=== PATIENT | female | born 1975 | race Caucasian/White ===

== ENCOUNTER 2020-03-08 09:28 | Emergency (ER) | payer MEDICARE, SELFPAY ==
[2020-03-08 09:48] VITALS: BP 174/124; PULSE 85; RESP 20; O2SAT 99; BMI 32.9
--- NOTE | 2020-03-08 10:02 | HMH.EDUTC ---
[facility] [place] Clinical Impression: URI (upper respiratory infection) Qualifiers: URI type: unspecified URI Qualified Code(s): J06.9 - Acute upper respiratory infection, unspecified Disposition: Home, Self-Care Condition on Discharge: Good Instructions: Sinusitis, DI for Sinusitis, Azithromycin, Preventing the Spread of Coronavirus Discharge Instructions Additional Instructions: *Monitor Temp, Over the counter Motrin or Tylenol as directed/as needed Tylenol every 4 hours and Motrin every 6 hours (as long as your family doctor has told you that you can take it) for fever or pain. and straight to ER if unable to lower temp less than 101.0 after medication given *Warm salt water gargles may help to soothe the throat *Throat Lozenges *Warm fluids like tea with honey may help to soothe the throat *Sleep elevated *Humidifier/Vaporizer *Flonase 2 sprays in each nostril daily but be aware that it may take 2-3 days before you notice improvement Follow up IMMEDIATELY for new or worsening symptoms or no Noticeable improvement over the next 48-72 hours. 911 for difficulty breathing or swallowing You was tested for today for COVID19 your test result should be back in the next 24-48 hours, you may call to the [facility] later today or tomorrow to see if your test results are back and the result [phone] [facility] hours are 9am-9pm You was given a handout with instructions for Self Quarantine and Self isolation for while you wait on test results and what to do if they are positive If you are positive the Health Dept will be contacting you also Prescriptions: Amoxicillin/Potassium Clav [Augmentin 875-125 Tablet] 1 tab PO Q12H #14 tab Transmission Status: Pending to [id number] Referrals: Asmita Giang PA [Primary Care Provider] - As needed Forms: Work/School Release Time of Disposition: 10:18 Medical Decision Making - Chance Inquiry Pt receiving controlled substance: No Chance was queried for this patient: No Vital Signs: 03/08/20 09:48 Pulse Rate [Radial] 85 Respiratory Rate 20 Blood Pressure [Right Arm] 174/124 H Blood Pressure Mean [Right Arm] 140 Blood Pressure Source [Right Arm] Automatic Cuff Blood Pressure Position [Right Arm] Sitting 02 Sat by Pulse Oximetry 99 Oxygen Delivery Method Room Air Orders (Tests/Meds): ORDERS Category Date Time Status Covid-19 Nasal PCR ([facility]) Routine Lab 03/08/20 09:35 Ordered Medical Decision Narrative: Discussed blood pressure and recommended transfer to the ED for further work up and evaluation due to blood pressure being so elevated and patient declined and states that she will follow up with PCP or find a new PCP patient states that she has taken augmentin recently without complications and reactions [facility] [place] HPI - General Stated complaint: covid test Time Seen by Provider: 03/08/20 10:02 Mode of Arrival: Ambulatory Source of Information: Patient Limitations: No Limitations Description of Symptoms (Recalled from Triage Doc. by RN): sore throat, congestion, headache, coughing up green stuff HEENT Symptoms (Recalled from RN notes): Yes Resp Symptoms (Recalled from RN notes): No Skin Symptoms (Recalled from RN notes): No MS Symptoms (Recalled from RN notes): No Functional Status (Recalled from RN notes): wnl - History of Present Illness Provider Complaint: Patient states that she has had some sinsus congestion and pressure, having sore throat, drainage and over all feeling achy and at times coughing up some drainage that looks greenish yellow like she blows from her nose States that she was worried that she may have COVID and wanted to get checked - Related Data Previous Rx's Medication Instructions Recorded Amoxicillin/Potassium Clav 1 tab PO Q12H #14 tab 03/08/20 [Augmentin 875-125 Tablet] Allergies Allergy/AdvReac Type Severity Reaction Status Date / Time No Known Allergies Allergy Verified 03/08/20 09:52 - Worker's Comp Is
[2020-03-08 10:32] VITALS: BP 158/104; PULSE 85; RESP 20; TEMP 37.1; O2SAT 99
[2020-03-08 21:29] LABS: UTC Strep Screen (Rapid) Negative (Negative)
== END 2020-03-08 10:33 | disposition home or self-care (01) ==
PROVIDERS: Emergency Provider Nurse Practitioner; PCP Physician Assistant
DX: Z20.828 Contact with and (suspected) exposure to other viral communicable diseases (principal); J06.9 Acute upper respiratory infection, unspecified
CPT/HCPCS: G0463; 87880; 99202; U0003

== ENCOUNTER → 2020-03-11 15:31 | Outpatient (CLI) | payer MEDICARE, SELFPAY ==
--- NOTE | 2020-03-11 15:36 | XR_ITS ---
PROCEDURE: XR CHEST 2V CLINICAL HISTORY: chest pain/dyspnea COMPARISON: No exams were available for comparison FINDINGS: The cardiomediastinal silhouette and pulmonary vascularity are within normal limits. The lungs are clear without infiltrates, suspicious nodules, or pleural effusions. No acute bony abnormalities. IMPRESSION: No acute findings. Dictated by: Montez Hutchison MD 03/11/2020 15:57 Montez Hutchison MD in [place] 03/11/2020 15:57
[2020-03-11 16:31] LABS: Basophils # 0.1 K/mm3 (0-0.2); Basophils % 0.8 % (0.1-2.0); Eosinophils # 0.2 K/mm3 (0.0-0.4); Eosinophils % 1.8 % (0.1-12.0); Hematocrit 43.1 % (37.0-47.0); Hemoglobin 14.2 g/dL (12.2-16.2); Lymphocytes # 2.2 K/mm3 (0.7-4.5); Lymphocytes % 22.9 % (10-50); Mean Corpuscular Volume 84.8 fl (81-99); Mean Platelet Volume 7.6 fl (7.4-10.4); Monocytes # 0.4 K/mm3 (0.1-1.0); Monocytes % 4.3 % (1.7-9.3); Neutrophils # 6.8 K/mm3 (1.8-7.8); Neutrophils % 70.3 % (37.0-80.0); Platelet Count 390 K/mm3 (142-424); Red Blood Count 5.08 M/mm3 (4.20-5.40); Red Cell Distribution Width 16.2 % (11.5-17.5); White Blood Count 9.7 K/mm3 (4.8-10.8)
[2020-03-11 16:59] LABS: Alanine Aminotransferase 22 U/L (12-78); Albumin Level 4.4 g/dl (3.5-5.0); Alkaline Phosphatase 79 U/L (38-126); Anion Gap 12.1 mEq/L (5-15); Aspartate Amino Transferase 25 U/L (14-36); Bilirubin,Direct 0.1 mg/dl (0.0-0.4); Bilirubin,Indirect 0.2 mg/dL (0.0-0.9); Bilirubin,Total 0.3 mg/dl (0.2-1.3); Bilirubin,Unconjugated 0.2 mg/dL (0.0-1.1); Blood Urea Nitrogen 8 mg/dl (7-17); Calcium 9.6 mg/dl (8.4-10.2); Carbon Dioxide 27 mmol/L (22.0-30.0); Chloride 101 mmol/L (98-107); Chol/HDL Ratio 4.7 (1-3.5); Cholesterol 233 mg/dl (140-200); Estimated Glomerular Filt Rate 92 ml/min (>60); GFR (African American) 111 ML/MIN (>60); Glucose 100 mg/dl (74-100); HDL Cholesterol 50 mg/dl (40-60); Potassium 4.1 mmoL/L (3.5-5.1); Sodium 136 mmol/L (136-145); Total Protein,Serum 7.1 g/dl (6.3-8.2); Triglycerides 280 mg/dl (30-150); VLDL Cholesterol 56 mg/dL (0-40)
[2020-03-11 17:09] LABS: NT Pro Brain Natriuretic Pep. 38.2 pg/mL (0-125)
[2020-03-11 17:10] LABS: Direct LDL Cholesterol 146.98 mg/dL (100-129)
[2020-03-11 17:16] LABS: Free T4 (Free Thyroxine) 0.71 ng/dl (0.78-2.19)
[2020-03-11 17:30] LABS: Thyroid Stimulating Hormone 5.18 uIU/mL (0.465-4.68)
== END ==
PROVIDERS: PCP Physician Assistant; Visit Provider Urology
DX: E07.9 Disorder of thyroid, unspecified (principal); I10 Essential (primary) hypertension; R00.2 Palpitations; R06.00 Dyspnea, unspecified; R06.01 Orthopnea; R07.9 Chest pain, unspecified; Z82.49 Family history of ischemic heart disease and other diseases of the circulatory system; Z86.69 Personal history of other diseases of the nervous system and sense organs; Z86.79 Personal history of other diseases of the circulatory system; Z87.448 Personal history of other diseases of urinary system
CPT/HCPCS: 36415; 71046; 80048; 80061; 80076; 83880; 84439; 84443; 85025

== ENCOUNTER → 2020-03-26 07:07 | Outpatient (CLI) | payer MEDICARE, SELFPAY ==
--- NOTE | 2020-03-26 07:08 | CA_ITS ---
APPROVED REPORT Exam: Exercise Treadmill Technologist: Kerline Flores Ht: 5 ft 2 in Wt: 215 lbs BSA: 1.97 m2 HR: 72 bpm BP: 149/92 mmHg Indications: Chest pain, Shortness of Breath Medical History Medications: Levothyroxine,,,,, Aspirin,,,,, Losartan,,,,, Atorvastatin,,,,, HCTZ,,,,, DulOXETINE,,,,, OmeGA 3,,,,, LiNACLOTIDE,,,,, Stress Test Details Test: Mark HR Resting HR: 79 bpm Max Heart Rate (APMHR): 178 bpm Max HR Achieved: 146 bpm Target HR (85% APMHR): 151 bpm % of APMHR: 82 Recovery HR: 95 bpm BP Resting BP: 149.0/92.0 mmHg Max BP: 180.0/94.0 mmHg Recovery BP: 146.0/91.0 mmHg ECG Clinical Exercise duration: 07:00 min Highest Stage Achieved: Exercise capacity: 10.1 METs Stress ECG Conclusion Resting EKG: Normal sinus rhythm, PVCs Patient exercised 7:00 on Mark Protocol. Test stopped due to shortness of air, fatigue. Symptoms: Dyspnea with mild chest tightness Arrhythmias/Ectopy: Occasional isolated PVC ST-T Changes: Allowing for some motion artifact at peak exercise, the ST response is normal. Conclusion: Normal GXT to heart rate achieved (82% of PM), mild chest tightness, myoview images reported separately. Test Summary REST . . . . . . . Sitting REST . . . . . . . Standing REST 05:20 0.0 0.0 79 . 149/ 92 . . Stage 1 01:00 10.0 1.7 106 . . . . Stage 1 02:00 10.0 1.7 111 . . . . Stage 1 03:00 10.0 1.7 116 . 162/ 86 . . Stage 2 01:00 12.0 2.5 127 . . . . Stage 2 02:00 12.0 2.5 126 . . . . Stage 2 . . . . . . . Myoview Injected Stage 2 03:00 12.0 2.5 127 . 166/ 90 . . Stage 3 01:00 14.0 3.4 144 . . . Stop exercise at 07:00 RECOVERY . . . . . . . chest tightness dizzy RECOVERY 01:00 0.0 0.0 120 . . . . RECOVERY 02:00 0.0 0.0 105 . 180/ 94 . . RECOVERY 03:00 0.0 0.0 101 . 167/ 92 . . RECOVERY 04:00 0.0 0.0 90 . 167/ 92 . . RECOVERY 05:00 0.0 0.0 95 . 146/ 91 . . RECOVERY 05:21 0.0 0.0 86 . 146/ 91 . . Electronically signed by : Ashvin Andrea, 03/27/2020 10:23:52
--- NOTE | 2020-03-26 07:08 | CA_ITS ---
APPROVED REPORT EXAM: Comprehensive 2D, Doppler, and color-flow Echocardiogram Satellite Technician: Niharika Chong RVT Ht: 5 ft 2 in Wt: 215lbs BSA: 1.97 BP: 150/88 mmHg Indications: CP,SOA,CHF,HTN,EX SMOKER 2D Dimensions LVOT 2.24 cm (M/F) 1.5-2.5 M-Mode Dimensions RVDd 2.83 cm (0.9-2.6) LA Diam 3.78 cm (1.9-4.0) LVDd 5.19 cm (3.5-5.7) Ao Diam 2.65 cm (2.0-3.7) LVDs 3.43 cm (3.5-5.7) IVSd 0.75 cm (0.6-1.1) PWd 0.72 cm (0.6-1.1) EF (Teich) 62.40% FS 33.90% EDV (Teich) 128.90 mL ESV (Teich) 48.50 mL LV Diastology E Decel Time 157.00 (160-240 msec) E/A Ratio 1.2 MED E' 8.20 (< 7 cm/sec) E'/MED E' Ratio 9.73 (>14) LAT E' 12.10 (<10 cm/sec) E/LAT E' Ratio 6.60 (>14) Mitral Valve MV E Max Delon. 80.00 (40-130 cm/s) MV A Velocity 67.00 (40-130 cm/s) E/A Ratio 1.19 MV Decel. Time 157.00 (160-240 ms) MV PHT 46.00 ms Pulmonary Valve PV Peak Velocity 66.00 (50-150 cm/s) Tricuspid Valve TR P. Velocity 157.00 cm/s Left Ventricle Left atrium is mildly enlarged, left ventricle is normal size, mild concentric left ventricular hypertrophy, visually estimated ejection fraction 55% with no regional wall motion abnormality, diastolic parameters are within normal range. Right Ventricle Right atrium and right ventricle are normal size and contractility. Aortic Valve Aortic valve is minimally thickened and fibrosed. There is no aortic stenosis or aortic insufficiency. Mitral Valve Mitral valve leaflets are minimally thickened, there is no mitral stenosis, there is mild mitral regurgitation. Tricuspid Valve Tricuspid valve is grossly normal, there is mild tricuspid regurgitation. Tricuspid regurgitation jet velocity is inadequate for calculation of the right ventricular systolic pressure. Pulmonic Valve Pulmonic valve is poorly visualized. Great Vessels Aortic root is normal size. Pericardium No significant pericardial effusion noted. Conclusion 1. Mildly enlarged left atrium, normal left ventricular size, mild concentric left ventricular hypertrophy, visually estimated ejection fraction 55% with no regional wall motion abnormality, diastolic parameters are within normal range. 2. Mild mitral and tricuspid regurgitation. 3. No significant pericardial effusion noted. Electronically signed by : Ashvin Andrea, 03/27/2020 11:51:36
--- NOTE | 2020-03-26 07:08 | NM_ITS ---
APPROVED REPORT Exam: Nuclear Stress Test Indication: Chest pain, SOB, Palpitations, Syncope, Fatigue, CAD, CHF, HTN, High cholesterol, Family history Patient Location: Outpatient Stress Tech: Kerline Flores NM Tech:Taylor Stratton, ARRT, RT (R)(N) Ht: 5 ft 2 in Wt: 215 lbs Bra Size: 38C HR: 72 bpm BP: 149/92 mmHg BSA: 1.97 m2 BMI: 39.3 History: Chest pain, SOB, Palpitations, Syncope, Fatigue, CAD, CHF, HTN, High cholesterol, Family history Procedure: Patient exercised on Mark protocol 7:00 minutes and sec, resting heart rate 72 bpm, resting blood pressure 149/92 mmHg, with exercise maximum heart rate achived was 140 bpm which is Less than 85 % of the maximum predicted heart rate and blood pressure was 180/94 mmHg. Test was stopped due to SOA. Patient has good exercise capacity, achieved 10.1 METs of workload on treadmill, the blood pressure response to exercise was Adequate. Electrocardiogram Resting electrocardiogram shows sinus rhythm with exercise there is less than 1.[address] segment depression noted from the baseline EKG. The EKG portion of the exercise Myoview is nondiagnostic as patient did not achieve the target heart rate. Cardiac Stress and Resting SPECT Images: Cardiac Stress and Resting SPECT images were obtained using technetium 99m Myoview 32.0 mCi stress and 10.21 mCi at rest. Gated SPECT for analysis of segmental wall motion and calculation of the ejection fraction also done. Prone images were also obtained. Cardiac stress and resting SPECT images show uniform myocardial activity without segmental perfusion abnormality, computer derived ejection fraction is 53% with no regional wall motion abnormality, right ventricle is normal size and contractility. Conclusion: 1. The EKG portion of the exercise Myoview is nondiagnostic as patient did not achieve the target heart rate, patient has good exercise capacity achieved 10.1 mets of workload on treadmill, the blood pressure response to exercise was adequate, patient does complain chest tightness with exercise. 2. No scintigraphic evidence of reversible ischemia seen at this level of exercise, computer derived ejection fraction 53% with no regional wall motion abnormality, right ventricle is normal size and contractility. Electronically signed by : Ashvin Andrea, 03/27/2020 10:33:02
--- NOTE | 2020-03-26 08:41 | HMH.ITSHM ---
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 []LOSARTAN ATORVASTATIN LEVOTHYROXINE APOLINAR LACKEY
== END ==
PROVIDERS: PCP Family Medicine; Visit Provider Urology
DX: E07.9 Disorder of thyroid, unspecified (principal); I10 Essential (primary) hypertension; R00.2 Palpitations; R06.00 Dyspnea, unspecified; R06.01 Orthopnea; R07.9 Chest pain, unspecified; R40.0 Somnolence; R53.83 Other fatigue; Z86.69 Personal history of other diseases of the nervous system and sense organs; Z86.79 Personal history of other diseases of the circulatory system; Z87.448 Personal history of other diseases of urinary system
CPT/HCPCS: 78452; 93017; 93306; A9502

== ENCOUNTER → 2020-04-14 08:39 | Outpatient (CLI) | payer MEDICARE, SELFPAY ==
[2020-04-14 09:05] LABS: Anion Gap 13.1 mEq/L (5-15); Blood Urea Nitrogen 8 mg/dl (7-17); Calcium 9.5 mg/dl (8.4-10.2); Carbon Dioxide 25 mmol/L (22.0-30.0); Chloride 101 mmol/L (98-107); Estimated Glomerular Filt Rate 92 ml/min (>60); GFR (African American) 111 ML/MIN (>60); Glucose 132 mg/dl (74-100); Potassium 4.1 mmoL/L (3.5-5.1); Sodium 135 mmol/L (136-145)
== END ==
PROVIDERS: Visit Provider Urology
DX: I10 Essential (primary) hypertension (principal); I25.10 Atherosclerotic heart disease of native coronary artery without angina pectoris; R00.2 Palpitations; R06.00 Dyspnea, unspecified; R60.0 Localized edema; Z86.79 Personal history of other diseases of the circulatory system
CPT/HCPCS: 36415; 80048

== ENCOUNTER → 2020-06-16 08:44 | Outpatient (CLI) | payer MEDICARE, SELFPAY ==
[2020-06-16 09:55] LABS: Chloride 104 mmol/L (98-107); Potassium 4.4 mmoL/L (3.5-5.1); Sodium 136 mmol/L (136-145)
[2020-06-16 09:58] LABS: Alanine Aminotransferase 20 U/L (12-78); Albumin Level 4.2 g/dl (3.5-5.0); Albumin/Globulin Ratio 1.8 (1.1-1.8); Alkaline Phosphatase 83 U/L (38-126); Anion Gap 9.4 mEq/L (5-15); Aspartate Amino Transferase 23 U/L (14-36); Bilirubin,Total 0.5 mg/dl (0.2-1.3); Blood Urea Nitrogen 10 mg/dl (7-17); Calcium 9.4 mg/dl (8.4-10.2); Carbon Dioxide 27 mmol/L (22.0-30.0); Chol/HDL Ratio 2.4 (1-3.5); Cholesterol 124 mg/dl (140-200); Estimated Glomerular Filt Rate 91 ml/min (>60); GFR (African American) 111 ML/MIN (>60); Globulin 2.3 g/dL (1.3-3.2); Glucose 111 mg/dl (74-100); HDL Cholesterol 52 mg/dl (40-60); Total Protein,Serum 6.5 g/dl (6.3-8.2); Triglycerides 89 mg/dl (30-150); VLDL Cholesterol 18 mg/dL (0-40)
[2020-06-16 10:10] LABS: Direct LDL Cholesterol 56.74 mg/dL (100-129)
[2020-06-16 10:14] LABS: Free T4 (Free Thyroxine) 1.11 ng/dl (0.78-2.19)
[2020-06-16 10:28] LABS: Thyroid Stimulating Hormone 0.17 uIU/mL (0.465-4.68)
== END ==
PROVIDERS: Visit Provider Family Medicine
DX: I10 Essential (primary) hypertension (principal); E78.5 Hyperlipidemia, unspecified; E03.9 Hypothyroidism, unspecified
CPT/HCPCS: 36415; 80053; 80061; 84439; 84443

== ENCOUNTER → 2020-07-24 08:34 | Outpatient (CLI) | payer MEDICARE, SELFPAY ==
--- NOTE | 2020-07-24 08:36 | CA_ITS ---
APPROVED REPORT Drawer In Dobby Loom: Niharika Chong RVT Study Quality: Good Indications: HTN Risk Factors Hypertension Hyperlipidemia Smoking Renal Artery Doppler Origin (R) 147.8/ cm/sec Proximal (R) 147.8/ cm/sec Mid (R) 165.2/ cm/sec Distal (R) 102.7/ cm/sec Renal Aorta Ratio (R) 1.18 Segmental A. (R) 40.2/17.2 cm/sec RI: 0.57 Segmental A. Sup (R) 40.2/17.2 cm/sec Segmental A. Mid (R) 63.1/24.4 cm/sec Segmental A. Inf (R) 37.3/21.5 cm/sec Origin (L) 101.5/ cm/sec Proximal (L) 140.1/ cm/sec Mid (L) 97.7/ cm/sec Distal (L) 137.5/ cm/sec Renal Aorta Ratio (L) 1.00 Segmental A. (L) 41.1/14.8 cm/sec RI: 0.63 Segmental A. Sup (L) 41.1/14.8 cm/sec Segmental A. Mid (L) 27.7/13.1 cm/sec Segmental A. Inf (L) 27.7/10.2 cm/sec Renal Measurements Kidney Size (R) 11.2x5.5 cm Cortical Thickness (R) 1.6 cm Kidney Size (L) 10.9x5.3 cm Cortical Thickness (L) 1.5 cm Findings Study suggests no evidence of stenosis of the bilateral renal arteries. Conclusion Study suggests no evidence of stenosis of the bilateral renal arteries. Electronically signed by : Montez Hutchison MD 07/24/2020 15:22:49
== END ==
PROVIDERS: PCP Family Medicine; Visit Provider Physician Assistant
DX: I10 Essential (primary) hypertension (principal)
CPT/HCPCS: 93976

== ENCOUNTER 2021-03-13 12:14 | Emergency (ER) | payer MEDICARE, SELFPAY ==
[2021-03-13 12:16] VITALS: BP 140/109; PULSE 83; RESP 18; TEMP 36.8; O2SAT 97; BMI 39.3
[2021-03-13 12:41] LABS: Microscopic, Urine URINE MICROSCOPIC (MICROSCOPIC)
[2021-03-13 12:45] LABS: Appearance,Urine CLEAR (Clear); Bilirubin,Urine Negative (Negative); Blood, Urine 3+ (Negative); Color,Urine YELLOW (Yellow); Glucose,Urine (UA) Negative (Negative); Ketones,Urine Negative (Negative); Leukocyte Esterase,Urine Negative (Negative); Nitrate,Urine Negative (Negative); Protein,Urine Negative (Negative); Urobilinogen,Urine 0.2 EU/dl (0.2)
--- NOTE | 2021-03-13 13:08 | HMH.EDGENADL ---
ED Disposition Clinical Impression: Ovarian cyst Qualifiers: Laterality: left Qualified Code(s): N83.202 - Unspecified ovarian cyst, left side Disposition: Home, Self-Care Condition on Discharge: Good Instructions: DI for Ovarian Cyst Referrals: Gregor Geller MD [Primary Care Provider] - Nawaf Orta MD [Staff Physician] - - Critical Care Critical Care Time: No Attestation: On 03/13/21, the high probability of a clinically significant, sudden or life threatening deterioration of the following system(s) required my full and direct attention, intervention and personal management. The time I documented below is in addition to time spent performing reported procedures but includes the following listed in this critical care notation. Medical Decision Making - Medical Records Medical records reviewed: Yes: I reviewed the patient's medical records. - Chance Inquiry Pt receiving controlled substance: No Vital Signs: 03/13/21 12:16 Temperature 98.3 F Temperature Source Oral Pulse Rate [Right Radial] 83 Respiratory Rate 18 Blood Pressure [Right Arm] 140/109 H Blood Pressure Mean [Right Arm] 119 Blood Pressure Source [Right Arm] Automatic Cuff Blood Pressure Position [Right Arm] Sitting 02 Sat by Pulse Oximetry 97 Oxygen Delivery Method Room Air - Lab Data Lab Results 03/13/21 12:23: Urine HCG, Qual Negative 03/13/21 12:35: Urine Color Yellow, Urine Appearance Clear, Urine pH 7.0, Ur Specific [place] 1.010, Urine Protein Negative, Urine Glucose (UA) Negative, Urine Ketones Negative, Urine Blood 3+, Urine Nitrate Negative, Urine Bilirubin Negative, Urine Urobilinogen 0.2, Ur Leukocyte Esterase Negative, Urine RBC 10-20, Ur Squamous Epith Cells 5-10, Urine Bacteria 1+ 03/13/21 12:52: WBC 6.9, RBC 4.15 L, Hgb 11.7 L, Hct 35.3 L, MCV 85.0, MCH 28.2, MCHC 33.2, RDW 14.0, Plt Count 451 H, MPV 7.7, Neut % (Auto) 70.1, Lymph % (Auto) 22.7, [place] % (Auto) 4.8, Eos % (Auto) 1.3, Baso % (Auto) 1.1, Neut # (Auto) 4.8, Lymph # (Auto) 1.6, [place] # (Auto) 0.3, Eos # (Auto) 0.1, Baso # (Auto) 0.1 03/13/21 12:52: Sodium 136, Potassium 4.0, Chloride 101, Carbon Dioxide 29, Anion Gap 10.0, BUN 10, Creatinine 0.70, Estimated Creat Clear 160, Estimated GFR 91, Est GFR ( Amer) 111, Glucose 84, Calcium 9.4, Total Bilirubin 0.2, AST 28, ALT 17, Alkaline Phosphatase 73, Total Protein 6.8, Albumin 4.3, Globulin 2.5, Albumin/Globulin Ratio 1.7 Result diagrams: 03/13/21 12:52 03/13/21 12:52 Orders (Tests/Meds): ED MEDICATIONS Discontinued Medications Generic Name Dose Route Start Last Admin Trade Name Freq PRN Reason Stop Dose Admin Sodium Chloride 1,000 mls @ 999 mls/hr 03/13/21 12:45 03/13/21 13:16 Sod Chlor 0.9% 1000ml Bag IV 03/13/21 13:45 999 mls/hr .Q1H1M MARCELINA Administration Iopamidol 75 ml 03/13/21 15:16 03/13/21 15:17 Iopamidol-370 (76%);100ml Bottle IV 03/13/21 15:17 75 ml ONCE ONE Administration Ketorolac Tromethamine 30 mg 03/13/21 12:39 03/13/21 13:16 Ketorolac 30mg/Ml Vial IV 03/13/21 12:40 30 mg ONCE ONE Administration Ondansetron HCl 4 mg 03/13/21 12:39 03/13/21 13:16 Ondansetron 4mg/2ml Vial IV 03/13/21 12:40 4 mg ONCE ONE Administration Sodium Chloride 10 ml 03/13/21 15:16 03/13/21 15:17 Sodium Chloride 0.9% 10ml Syr (Rad Only) IV 03/13/21 15:17 10 ml ONCE ONE Administration - CT Data CT Scan: Abdomen, Pelvis Time Received: 16:[address] Reviewed: Yes: I have reviewed the patient's CT results, I have viewed the radiologist's interpretation Findings Narrative: IMPRESSION: 1. No acute findings. 2. No findings of appendicitis. 3. Biliary tree is within normal limits post cholecystectomy. 4. Additional nonemergency and chronic findings as above, including 3.3 cm left adnexal cyst, some sclerotic bone lesions, spinal degenerative changes. - Reevaluation(s) Time: 16:13 Reevaluation #1: On reevaluation, patient is feeling hermelindo
[2021-03-13 13:11] LABS: Bacteria,Urine 1+ /lpf
[2021-03-13 13:30] LABS: Chloride 101 mmol/L (98-107); Sodium 136 mmol/L (136-145)
[2021-03-13 13:33] LABS: Alanine Aminotransferase 17 U/L (12-78); Alkaline Phosphatase 73 U/L (38-126); Aspartate Amino Transferase 28 U/L (14-36); Bilirubin,Total 0.2 mg/dl (0.2-1.3); Blood Urea Nitrogen 10 mg/dl (7-17); Creatinine Clearance Estimated 160 mL/min (50-200); Estimated Glomerular Filt Rate 91 ml/min (>60); GFR (African American) 111 ML/MIN (>60)
[2021-03-13 13:34] LABS: Albumin Level 4.3 g/dl (3.5-5.0); Albumin/Globulin Ratio 1.7 (1.1-1.8); Calcium 9.4 mg/dl (8.4-10.2); Carbon Dioxide 29 mmol/L (22.0-30.0); Globulin 2.5 g/dL (1.3-3.2); Glucose 84 mg/dl (74-100); Total Protein,Serum 6.8 g/dl (6.3-8.2)
[2021-03-13 13:54] LABS: Basophils # 0.1 K/mm3 (0-0.2); Basophils % 1.1 % (0.1-2.0); Eosinophils # 0.1 K/mm3 (0.0-0.4); Eosinophils % 1.3 % (0.1-12.0); Hematocrit 35.3 % (37.0-47.0); Hemoglobin 11.7 g/dL (12.2-16.2); Lymphocytes # 1.6 K/mm3 (0.7-4.5); Lymphocytes % 22.7 % (10-50); Mean Corpuscular HGB Conc 33.2 g/dL (31.8-35.4); Mean Corpuscular Hemoglobin 28.2 pg (27.0-31.2); Mean Platelet Volume 7.7 fl (7.4-10.4); Monocytes # 0.3 K/mm3 (0.1-1.0); Monocytes % 4.8 % (1.7-9.3); Neutrophils # 4.8 K/mm3 (1.8-7.8); Neutrophils % 70.1 % (37.0-80.0); Platelet Count 451 K/mm3 (142-424); Red Blood Count 4.15 M/mm3 (4.20-5.40); White Blood Count 6.9 K/mm3 (4.8-10.8)
--- NOTE | 2021-03-13 14:17 | CT_ITS ---
PROCEDURE INFORMATION: Exam: CT Abdomen And Pelvis With Contrast Exam date and time: 03/13/2021 2:17 PM Age: 45 years old Clinical indication: Abdominal pain; Localized; Lower; Additional info: Pain, bleeding TECHNIQUE: Imaging protocol: Computed tomography of the abdomen and pelvis with contrast. Radiation optimization: All CT scans at this facility use at least one of these dose optimization techniques: automated exposure control; mA and/or kV adjustment per patient size (includes targeted exams where dose is matched to clinical indication); or iterative reconstruction. Contrast material: ISOVUE; Contrast volume: 75 ml; Contrast route: IV; COMPARISON: US CA RENAL ARTERY DUPLEX 07/24/2020 8:58 AM FINDINGS: Lungs: Minimal interstitial scarring or subsegmental atelectasis in the posterior lower lungs. No focal consolidation. Liver: The liver is normal. Gallbladder and bile ducts: Cholecystectomy clips. No biliary dilatation. No calcified stones. Pancreas: The pancreas is normal. Spleen: The spleen is normal. Adrenal glands: The adrenal glands are normal. Kidneys and ureters: The kidneys are normal. The ureters are normal. Stomach and bowel: There is no evidence of intestinal perforation or obstruction. The stomach is normal. Appendix: A normal appendix is identified. Intraperitoneal space: There is no significant free intraperitoneal fluid. There is no free intraperitoneal air. Vasculature: There is no aortic aneurysm.The vasculature demonstrates scattered mild atherosclerotic calcification. No portal venous gas. Lymph nodes: No significantly enlarged lymph nodes by short axis criteria. Urinary bladder: The bladder is normal. Reproductive: 3.3 cm left adnexal cystic lesion, HU density approximate 15, this is within normal limits size for age. No enhancing internal septations or nodules are visible. Series 4, image 85. Bilateral adnexal calcific densities, correlate for tubal ligation. Uterus and right ovary otherwise unremarkable. Bones/joints: Spinal degenerative changes greatest in the lower thoracic spine with multilevel disc narrowing and spondylosis.There is no evidence of acute fracture. 2 cm sclerotic right acetabular bone lesion coronal image 49, and axial series 4, image 96, nonspecific. Tiny sclerotic lesion of the inferior right ischium series 4, image 115 of 6 mm. Sclerotic lesions are statistically most likely benign bone islands, less likely would be blastic metastases. Lumbar facet arthropathy. Soft tissues: There is a tiny fatty umbilical hernia; no herniated bowel loops. There are no soft tissue masses or fluid collections. IMPRESSION: 1. No acute findings. 2. No findings of appendicitis. 3. Biliary tree is within normal limits post cholecystectomy. 4. Additional nonemergency and chronic findings as above, including 3.3 cm left adnexal cyst, some sclerotic bone lesions, spinal degenerative changes.
[2021-03-13 14:56] LABS: Urine Pregnancy, HCG Qual. Negative (Negative)
[2021-03-13 16:46] VITALS: BP 138/97; PULSE 66; RESP 18; TEMP 36.8; O2SAT 100
== END 2021-03-13 16:46 | disposition home or self-care (01) ==
PROVIDERS: Emergency Provider Emergency Medicine; PCP Family Medicine
DX: N83.202 Unspecified ovarian cyst, left side (principal); I10 Essential (primary) hypertension; N28.9 Disorder of kidney and ureter, unspecified
CPT/HCPCS: 74177; 80053; 81001; 81025; 85025; 96365; 96375; 99283; J2405; Q9967

== ENCOUNTER → 2021-03-16 11:03 | Outpatient (CLI) | payer MEDICARE, SELFPAY | PROVIDERS: PCP Family Medicine; Visit Provider Nurse Practitioner Family | DX: R00.2 Palpitations (principal); R42 Dizziness and giddiness; R60.9 Edema, unspecified | CPT/HCPCS: 93270 ==

== ENCOUNTER → 2021-03-26 15:01 | Outpatient (CLI) | payer MEDICARE, SELFPAY ==
--- NOTE | 2021-03-26 15:01 | US_ITS ---
PROCEDURE: US TRANSVAGINAL CLINICAL INDICATION: DUB COMPARISON: No exams were available for comparison FINDINGS: UTERUS: 9cm x 6cmx 4cm with a combined endometrial thickness of 11.3mm LEFT OVARY: [id number] with a volume of 22.9ml. RIGHT OVARY: [id number] with a volume of 5.2ml. Nabothian cysts are present. A small focal area of increased echogenicity is present in the central aspect of the endometrium at 6 by 2 mm possibly due to small polyp. There is a 3 cm simple appearing left ovarian cyst. No cul-de-sac fluid apparent. IMPRESSION: Endometrial thickness upper limits of normal with questionable small endometrial polyp. 3 cm benign-appearing left ovarian cyst Dictated by: Montez Hutchison MD 03/26/2021 17:10 Montez Hutchison MD in [place] 03/26/2021 17:10
== END ==
PROVIDERS: PCP Family Medicine; Visit Provider Obstetrics & Gynecology
DX: N92.0 Excessive and frequent menstruation with regular cycle (principal); N93.8 Other specified abnormal uterine and vaginal bleeding
CPT/HCPCS: 76830

== ENCOUNTER → 2021-04-21 11:11 | Outpatient (CLI) | payer MEDICARE, SELFPAY ==
[2021-04-21 12:09] LABS: Basophils # 0.1 K/mm3 (0-0.2); Basophils % 0.6 % (0.1-2.0); Eosinophils # 0.2 K/mm3 (0.0-0.4); Eosinophils % 1.7 % (0.1-12.0); Hematocrit 36.8 % (37.0-47.0); Hemoglobin 11.6 g/dL (12.2-16.2); Lymphocytes # 1.9 K/mm3 (0.7-4.5); Lymphocytes % 21.2 % (10-50); Mean Corpuscular HGB Conc 31.6 g/dL (31.8-35.4); Mean Corpuscular Volume 85.4 fl (81-99); Mean Platelet Volume 7.2 fl (7.4-10.4); Monocytes # 0.4 K/mm3 (0.1-1.0); Monocytes % 4.3 % (1.7-9.3); Neutrophils # 6.5 K/mm3 (1.8-7.8); Neutrophils % 72.3 % (37.0-80.0); Platelet Count 480 K/mm3 (142-424); Red Blood Count 4.31 M/mm3 (4.20-5.40); Red Cell Distribution Width 14.2 % (11.5-17.5)
[2021-04-21 12:33] LABS: HCG Qualitative, Serum Negative (Negative)
[2021-04-21 12:34] LABS: Alanine Aminotransferase 20 U/L (12-78); Albumin Level 4.3 g/dl (3.5-5.0); Alkaline Phosphatase 59 U/L (38-126); Anion Gap 11.7 mEq/L (5-15); Aspartate Amino Transferase 22 U/L (14-36); Bilirubin,Total 0.4 mg/dl (0.2-1.3); Blood Urea Nitrogen 13 mg/dl (7-17); Calcium 9.5 mg/dl (8.4-10.2); Carbon Dioxide 24 mmol/L (22.0-30.0); Chloride 104 mmol/L (98-107); Estimated Glomerular Filt Rate 109 ml/min (>60); GFR (African American) 132 ML/MIN (>60); Globulin 2.2 g/dL (1.3-3.2); Glucose 91 mg/dl (74-100); Potassium 4.7 mmoL/L (3.5-5.1); Sodium 135 mmol/L (136-145); Total Protein,Serum 6.5 g/dl (6.3-8.2)
[2021-04-21 13:04] LABS: Barbiturates Screen,Urine Negative ng/ml (<200)
[2021-04-21 13:05] LABS: Amphetamine/Metha Screen,Urine Negative ng/ml (<1000); Benzodiazepines Screen,Urine Negative ng/ml (<200)
[2021-04-21 13:06] LABS: Cannabinoid Screen,Urine Negative ng/ml (<50); Cocaine Screen,Urine Negative ng/ml (<300)
[2021-04-21 13:07] LABS: Methadone Screen,Urine Negative ng/ml (<300)
[2021-04-21 13:08] LABS: Opiate Screen,Urine Negative ng/ml (<300); Phencyclidine Screen,Urine Negative ng/ml (<25)
== END ==
PROVIDERS: PCP Family Medicine; Visit Provider Obstetrics & Gynecology
DX: Z01.812 Encounter for preprocedural laboratory examination (principal); Z11.52 Encounter for screening for COVID-19; Z79.899 Other long term (current) drug therapy
CPT/HCPCS: 36415; 80053; 80305; 84703; 85025; C9803; U0003; U0005

== ENCOUNTER 2021-04-23 06:17 | Day surgery (SDC) | payer MEDICARE, SELFPAY ==
[2021-04-20 13:15] VITALS: BMI 40.2
[2021-04-23] VITALS (11 sets, daily range): BP systolic 124–150; BP diastolic 65–95; PULSE 56–78; RESP 12–20; TEMP 36.3–36.4; O2SAT 93–100
--- NOTE | 2021-04-23 08:31 | HMH.ANESCL ---
[facility] Anesthesia Checklist - Patient Identification Patient Identification: Arm Band, Verbal (Name & ) - Structural Data Admitted From: Home Planned Operative Procedure/s: Hysteroscopy Consent for Planned Operative Procedure(s) Verified: Yes Verified Documents: Surgical Consent - NPO Status Verified Time NPO: 00:00 - Chart Verification Results Verified: CBC, BMP - Additional verifications Anesthesia Reactions: No Hx Blood Transfusions: No Blood Transfusion Reaction: No - Airway Assessment C-Spine Mobility Assessed: Yes TMJ Mobility Assessed: Yes Dentition: Good Dentition - Neurological Assessment Level of Consciousness: Awake, Alert, Appropriate - Anesthesia Plan Anesthesia Risk discussed: Yes ASA Class: II Anesthesia Type: General [facility] History I have reviewed the patient's past medical history: Yes Medical History: Reports:: Anxiety, Congestive Heart Failure, Diabetes Mellitus Type 1, Diabetes Mellitus Type 2, Hypertension, Renal Disease, Seizures (>60 days) Denies:: Cancer, Internal Pacemaker, MRSA *Have you ever received a pneumonia vaccine?: No *Have you received a flu vaccine this season?: No Other Medical History: Reports: Thyroid Disease. Denies: Blood Transfusion Reaction Anesthesia experience/problems:: none Other Surgeries: Yes: Angiogram, Cholecystectomy, Colonoscopy, EGD, Tubal Ligation. No: Pacemaker Amputation: No Fractures: No - *Social History Last grade of school completed: GED Smoking Status: Former smoker Alcohol Intake: current Alcohol Intake Frequency:: holidays/special occasions only Substance Use Type: denies use *Occupational Status:: disabled *Travel in the last 8 weeks: None - Psychiatric History Pschychiatric History:: Reports:: Anxiety Family Hx:: Cancer, Stroke, Coronary Artery Disease, Heart Attack
--- NOTE | 2021-04-23 10:04 | HMH.ANESI ---
[facility] Anesthesia Record Part I Intake, IV Amount: 800 Estimated blood loss (mL): 0 Urine output (mL): 0 Blood Pressure: 128/73 SaO2: 94 Pulse Rate: 60 Respiratory Rate: 12 Temperature: 97.5 F Patient is:: Awake, Stable Stable to PACU at:: 10:00
[2021-04-23 10:19] LABS: POC Glucose,Bedside 90 (70-110)
--- NOTE | 2021-04-23 10:26 | P.OP_ITS ---
Date of procedure: 04/23/21 Pre-op Diagnosis:: 1. Heavy menstrual bleeding 2. Dysfunctional uterine bleeding 3. Anemia secondary to chronic blood loss Post-op Diagnosis:: same Procedure performed:: D&C Hysteroscopy with Myosure excision of endometrial polyp Novasure endometrial ablation Surgeon:: Tonia Lott MD WAFER [employer] OPERATOR:: Gerardo Vazquez Anesthesia: GETA Estimated blood loss (mL): 5 Operative findings:: anterior cavitary lesions consistent with endometrial polyps Operative note:: The patient was taken to the operating room and general anesthesia was administered. She was prepped/draped in lithotomy position. The anterior lip of the cervix was grasped with a single tooth tenaculum and the cervix was dilated with Wong dilators of serially increasing size until the external os was able to accomodate the Myosure hysteroscope. The hysteroscope was advanced through the cervix and into the uterine cavity, which was distended with LR. Once the uterus was sufficiently distended, the cavity was evaluated and revealed several lesions on anterior uterine wall consistent with endometrial polyps. The Myosure was inserted into the hysteroscope and these lesions were excised successfully and without complication or significant fluid deficit. After the conclusion of this procedure, the Myosure and hysteroscope were removed from the uterus. The uterine cavity sounded to a length of 5cm. The Novasure was inserted through the cervix and expanded to fit the width of the uterus, with a width of 4.2cm. After a successful cavity assessment, the device was deployed and the endometrial ablation was completed in 81 seconds. The hysteroscope was removed from the uterus and all instruments removed from the vagina. The tenaculum site was hemostatic. All sponge/lap/needle/instrument counts correct x2. Total EBL: 5cc. The patient was taken out of lithotomy position, extubated and taken to the PACU in stable condition. Condition: stable Disposition: PACU Specimens:: endometrial curettings Complications:: none
--- NOTE | 2021-04-24 10:38 | P.PN_ITS ---
[facility] Anesthesia Record Part II Discharge Time: 10:44 Destination: Surgical Day Care (OP Surgery) PACU nurse assessment reviewed?: Yes Patient Condition:: Good Anesthesia Complications:: None Swallowing reflex intact?: Yes Cyanosis?: No Blood Pressure: 124/65 Pulse Rate: 56 Temperature: 97.5 F Mental Status: Alert & Oriented Pain level:: 4 Nausea and/or vomitting:: None Intake, IV Amount: 0
[2021-04-24 10:39] VITALS: BP 124/65; PULSE 56; TEMP 36.4
[2022-01-07 10:56] LABS: POC Glucose,Bedside 89 (70-110)
== END 2021-04-23 11:28 | disposition home or self-care (01) ==
LOC: OR 06:19
PROVIDERS: PCP Family Medicine; Visit Provider Obstetrics & Gynecology
DX: D50.0 Iron deficiency anemia secondary to blood loss (chronic) (principal); N92.0 Excessive and frequent menstruation with regular cycle; N93.8 Other specified abnormal uterine and vaginal bleeding; F41.9 Anxiety disorder, unspecified; I50.9 Heart failure, unspecified; E10.9 Type 1 diabetes mellitus without complications; E11.9 Type 2 diabetes mellitus without complications; I10 Essential (primary) hypertension; N28.9 Disorder of kidney and ureter, unspecified; R56.9 Unspecified convulsions; Z87.891 Personal history of nicotine dependence
CPT/HCPCS: 58563; 82962; 88305; 88342; J2405

== ENCOUNTER → 2021-07-21 06:17 | Outpatient (CLI) | payer SELFPAY ==
--- NOTE | 2021-07-21 06:18 | CT_ITS ---
FINAL REPORT TECHNIQUE: Thin section axial images were obtained through the heart and coronary arteries per CT coronary calcium score protocol. This study was performed with techniques to keep radiation doses as low as reasonably achievable (ALARA). Individualized dose reduction techniques using automated exposure control or adjustment of mA and/or kV according to the patient's size were employed. CLINICAL HISTORY: . chest pain, hypertension FINDINGS: On the axial images, there is calcification within the left anterior descending coronary artery and circumflex. This gives a coronary artery calcium score of 435 based on the Agatston scale. This coronary calcium score places the patient within the 99th percentile based on age and gender. The heart is normal in size. There is no pleural or pericardial effusion. Limited evaluation of the lungs reveal no suspicious nodule. IMPRESSION: Significant coronary artery disease. Cardiac evaluation and aggressive risk factor modification is recommended. Reviewed, Interpreted and Dictated by Marin Tai MD Transcribed by Zari Evans Authenticated by Marin Tai MD on 07/21/2021 08:30:12 AM [facility]
== END ==
PROVIDERS: PCP Family Medicine; Visit Provider Internal Medicine Cardiovascular Disease
DX: R06.00 Dyspnea, unspecified (principal); I20.9 Angina pectoris, unspecified; I10 Essential (primary) hypertension; R60.0 Localized edema; Z86.79 Personal history of other diseases of the circulatory system
CPT/HCPCS: 75571

== ENCOUNTER → 2021-07-21 06:22 | Outpatient (CLI) | payer MEDICARE, SELFPAY ==
--- NOTE | 2021-07-21 06:23 | CA_ITS ---
APPROVED REPORT Exam: Exercise Treadmill Technologist: Gayatri Quiroz, Ht: 5 ft 2 in Wt: 220 lbs BSA: 1.99 m2 HR: 55 bpm BP: 109/73 mmHg Rhythm: sinus florinda, low voltage QRS Medical History Medical History: HTN, Hyperlipidemia, Diabetic ??? Noninsulin Medications: Levothyroxine,,,,, Metformin,,,,, Losartan,,,,, DulOXETINE,,,,, Magnesium,,,,, Esomeprazole,,,,, Nadolol,,,,, AtorvaASTATIN,,,,, OmeGA 3,,,,, LiNACLOTIDE,,,,, MeDroxyprogesterone,,,,, Cardiac Risk Factors: HTN, Hyperlipidemia, Diabetes (non-insulin), FHX of CAD, Smoking Stress Test Details Test: Mark HR Resting HR: 62 bpm Max Heart Rate (APMHR): 176.330159 bpm Max HR Achieved: 143 bpm Target HR (85% APMHR): 149.678969 bpm % of APMHR: 81.25 Recovery HR: 118 bpm BP Resting BP: 110/75 mmHg Max BP: 162/66 mmHg Recovery BP: 147.0/76.0 mmHg ECG Resting ECG: sinus florinda, low voltage QRS Clinical Exercise duration: 07:31 min Highest Stage Achieved: Exercise capacity: 10.1 METs Stress ECG Conclusion Pt exercised total of 7:30 on mark protocol. No CP noted. Occasional PVC and 2 ventricular couplets. Allowing for motion artifact, the ST response to exercise is within normal. Normal GXT to HR achieved. (81% of PM). Blunted HR response on nadolol. Myoview images reported separately. Test Summary REST . . . . . . . Sitting REST . . . . . . . Standing REST 05:01 0.0 0.0 62 . 110/ 75 . . Stage 1 01:00 10.0 1.7 96 . . . . Stage 1 02:00 10.0 1.7 105 . . . . Stage 1 03:00 10.0 1.7 107 . 140/ 70 . . Stage 2 01:00 12.0 2.5 115 . . . . Stage 2 02:00 12.0 2.5 117 . . . . Stage 2 03:00 12.0 2.5 124 . 148/ 72 . . Stage 3 01:00 14.0 3.4 135 . . . . Stage 3 01:31 14.0 3.4 142 . . . Stop exercise at 07:31 RECOVERY 01:00 0.0 0.0 118 . . . . RECOVERY 02:00 0.0 0.0 92 . . . . RECOVERY 03:00 0.0 0.0 74 . 147/ 76 . . RECOVERY 04:00 0.0 0.0 78 . 162/ 66 . . RECOVERY 05:00 0.0 0.0 70 . 162/ 66 . . RECOVERY 05:45 0.0 0.0 67 . 126/ 69 . . Electronically signed by : Ashvin Andrea MD 07/21/2021 18:26:54
--- NOTE | 2021-07-21 06:23 | NM_ITS ---
APPROVED REPORT Exam: Nuclear Stress Test Indication: Chest pain, SOB, Palpitations, Syncope, Fatigue, CAD, HTN, DM, Family history Patient Location: Outpatient Stress Tech: Gayatri Quiroz [place] Tech:Taylor Stratton, ARRT, RT (R)(N) Ht: 5 ft 2 in Wt: 220 lbs Bra Size: 38C HR: 62 bpm BP: 110/75 mmHg BSA: 1.99 m2 BMI: 40.2 History: Chest pain, SOB, Palpitations, Syncope, Fatigue, CAD, HTN, DM, Family history Procedure: Patient exercised on Mark protocol 7:31 minutes and sec, resting heart rate 62 bpm, resting blood pressure 110/75 mmHg, with exercise maximum heart rate achived was 143 bpm which is 81 % of the maximum predicted heart rate and blood pressure was 162/66 mmHg. Test was stopped due to SOB. Patient denied any complaint of chest pain. Patient has good exercise capacity, achieved 10.1 METs of workload on treadmill, the blood pressure response to exercise was Adequate. Electrocardiogram Resting electrocardiogram shows sinus rhythm, with exercise there is less than 1.[address] segment depression noted from the baseline EKG. The EKG portion of the exercise Myoview is nondiagnostic as patient did not achieve the target heart rate. Cardiac Stress and Resting SPECT Images: Cardiac Stress and Resting SPECT images were obtained using technetium 99m Myoview 31.6 mCi stress and 10.92 mCi at rest. Gated SPECT for analysis of segmental wall motion and calculation of the ejection fraction also done. Cardiac stress and resting SPECT images show mild fixed defect in the anterior wall with normal leslie gated SPECT is likely secondary to soft tissue attenuation, no reversible ischemia seen, computer derived ejection fraction is 54% with no regional wall motion abnormality, however there is transient ischemic dilatation of the left ventricle seen, raising the concern for presence of balanced ischemia. Conclusion: 1. The EKG portion of the exercise Myoview was nondiagnostic as patient did not achieve the target heart rate, patient has good exercise capacity achieved 10.1 METs of workload on treadmill, the blood pressure response to exercise was adequate, test was stopped due to shortness of breath. 2. No scintigraphic evidence of reversible ischemia seen, compared right ejection fraction is 54% with no regional wall motion abnormality, however there is transient ischemic dilatation of the left ventricle seen, raising the concerns of presence of balanced ischemia and multivessel coronary artery disease. 3. Abnormal exercise Myoview study. Electronically signed by : Ashvin Andrea MD 07/21/2021 18:30:47
--- NOTE | 2021-07-21 06:23 | CA_ITS ---
APPROVED REPORT EXAM: Comprehensive 2D, Doppler, and color-flow Echocardiogram Medical Technicians: Dayana Diaz RT(R) Ht: 5 ft 2 in Wt: 220lbs BSA: 1.99 BP: 110/82 mmHg Indications: Chest Pain, Congestive Heart Failure, Shortness of Breath, Diabetes, Peripheral Edema, CAD 2D Dimensions LVOT 1.80 cm (M/F) 1.5-2.5 LA Volume 34.90 mL LA Volume Index 17.50 mL/m2 (M/F) 16-34 M-Mode Dimensions RVDd 2.35 cm (0.9-2.6) LA Diam 3.26 cm (1.9-4.0) LVDd 4.67 cm (3.5-5.7) Ao Diam 3.73 cm (2.0-3.7) LVDs 3.10 cm (3.5-5.7) IVSd 1.60 cm (0.6-1.1) PWd 0.86 cm (0.6-1.1) EF (Teich) 62.40% FS 33.60% EDV (Teich) 100.80 mL TAPSE 2.17 (<1.7) ESV (Teich) 37.90 mL LV Diastology MED E' 7.00 (< 7 cm/sec) MED A' 6.20 cm/s LAT E' 12.10 (<10 cm/sec) LAT A' 10.50 cm/s Aortic Valve AO Peak GR. 6.40 mmHg Pulmonary Valve PV Peak Velocity 153.00 (50-150 cm/s) Tricuspid Valve TR P. Velocity 208.00 cm/s RAP Estimate 10.00 mmHg RVSP 27.30 mmHg Left Ventricle Left atrium normal size, left ventricle is normal size preserved left ventricular systolic function, estimated ejection fraction 55% with no regional wall motion abnormality, diastolic parameters are within normal range. Right Ventricle Right atrium and right ventricle are normal size and contractility. Aortic Valve Aortic valve is minimally thickened and fibrosed, there is no aortic stenosis or aortic insufficiency. Mitral Valve Mitral valve is grossly normal, there is trace mitral regurgitation. Tricuspid Valve Tricuspid grossly normal, there is trace tricuspid regurgitation, tricuspid regurgitation jet velocity is inadequate for calculation of the right ventricular systolic pressure. Pulmonic Valve Pulmonic valve is poorly visualized. Great Vessels Aortic root is normal size. Inferior vena cava is poorly visualized. Pericardium No significant pericardial effusion noted. Conclusion 1. Normal left ventricular size, preserved left ventricular systolic function, visually estimated ejection fraction 55% with no regional wall motion abnormality, diastolic parameters are within normal range. 2. Trace mitral and tricuspid regurgitation. 3. No significant pericardial effusion. 4. Inferior vena cava is poorly visualized. Electronically signed by : Ashvin Andrea MD 07/21/2021 20:08:42
--- NOTE | 2021-07-21 08:38 | HMH.ITSHM ---
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 []OMEGA 3 NADOLOL METFORMIN LOSARTAN LINACLOTIDE LEVOTHYROXINE PROVERA NEXIUM CYMBALTA ATORVASTATIN
== END ==
PROVIDERS: PCP Family Medicine; Visit Provider Nurse Practitioner Family
DX: I10 Essential (primary) hypertension (principal); I20.9 Angina pectoris, unspecified; R06.00 Dyspnea, unspecified; R60.0 Localized edema; Z86.79 Personal history of other diseases of the circulatory system
CPT/HCPCS: 78452; 93017; 93306; A9502

== ENCOUNTER → 2021-08-04 10:13 | Outpatient (CLI) | payer MEDICARE, SELFPAY ==
[2021-08-04 10:56] LABS: Chloride 105 mmol/L (98-107); Potassium 4.3 mmoL/L (3.5-5.1); Sodium 137 mmol/L (136-145)
[2021-08-04 10:58] LABS: Alanine Aminotransferase 22 U/L (12-78); Aspartate Amino Transferase 28 U/L (14-36); Bilirubin,Unconjugated 0.5 mg/dL (0.0-1.1); Blood Urea Nitrogen 6 mg/dl (7-17); Estimated Glomerular Filt Rate 91 ml/min (>60); GFR (African American) 110 ML/MIN (>60)
[2021-08-04 10:59] LABS: Alkaline Phosphatase 74 U/L (38-126); Anion Gap 10.3 mEq/L (5-15); Bilirubin,Indirect 0.6 mg/dL (0.0-0.9); Bilirubin,Total 0.6 mg/dl (0.2-1.3); Calcium 9.3 mg/dl (8.4-10.2); Carbon Dioxide 26 mmol/L (22.0-30.0); Chol/HDL Ratio 2.7 (1-3.5); Cholesterol 122 mg/dl (140-200); Glucose 107 mg/dl (74-100); HDL Cholesterol 45 mg/dl (40-60); Total Protein,Serum 6.1 g/dl (6.3-8.2); Triglycerides 136 mg/dl (30-150); VLDL Cholesterol 27 mg/dL (0-40)
[2021-08-04 11:05] LABS: Basophils % 0.6 % (0.1-2.0); Eosinophils # 0.1 K/mm3 (0.0-0.4); Eosinophils % 1.8 % (0.1-12.0); Hematocrit 36.4 % (37.0-47.0); Hemoglobin 11.5 g/dL (12.2-16.2); Lymphocytes # 1.7 K/mm3 (0.7-4.5); Mean Corpuscular HGB Conc 31.4 g/dL (31.8-35.4); Mean Corpuscular Hemoglobin 25.5 pg (27.0-31.2); Monocytes # 0.4 K/mm3 (0.1-1.0); Monocytes % 5.1 % (1.7-9.3); Neutrophils # 5.4 K/mm3 (1.8-7.8); Neutrophils % 70.6 % (37.0-80.0); Platelet Count 381 K/mm3 (142-424); Red Cell Distribution Width 14.8 % (11.5-17.5); White Blood Count 7.6 K/mm3 (4.8-10.8)
[2021-08-04 11:10] LABS: Direct LDL Cholesterol 61.12 mg/dL (100-129)
== END ==
PROVIDERS: Visit Provider Physician Assistant
DX: I10 Essential (primary) hypertension (principal); I20.9 Angina pectoris, unspecified; R06.00 Dyspnea, unspecified; R60.0 Localized edema; R94.30 Abnormal result of cardiovascular function study, unspecified; Z86.79 Personal history of other diseases of the circulatory system; Z01.812 Encounter for preprocedural laboratory examination; Z11.52 Encounter for screening for COVID-19
CPT/HCPCS: 80048; 80061; 80076; 85025; C9803; U0003; U0005

== ENCOUNTER 2021-08-06 08:14 | Day surgery (SDC) | payer MEDICARE, SELFPAY ==
[2021-08-06] VITALS (14 sets, daily range): BP systolic 103–141; BP diastolic 56–93; PULSE 43–58; RESP 16–18; TEMP 36.8; O2SAT 97–100; BMI 39.9
--- NOTE | 2021-08-06 | IR_ITS ---
APPROVED REPORT Patient Location: Outpatient Opticianry Teacher: KAHLIL Rincon RT (R) PROCEDURES Left heart catheterization Left ventriculogram Selective coronary angiogram Intravascular ultrasound to the proximal mid LAD FFR to the LAD Drug-eluting stent deployment to the proximal LAD INDICATION Coronary artery disease, High risk calcium score greater than 400 with predominance of calcium in the LAD, Ischemic response to adenosine with an FFR index of 0.76, Plaque burden in the proximal LAD in excess of 70% via area ratio Informed consent was obtained prior to the procedure. COMPLICATIONS None Estimated Blood Loss: Less than 10 mls TECHNIQUE One percent lidocaine used to anesthetize the right anterior aspect of the wrist. The right radial artery was accessed via the Seldinger technique. A 6 [place] sheath was placed in the right radial artery. 2.5 mg of verapamil, 800 mcg of nitroglycerin, 1mg Lidocaine and 5000 U Heparin were given through the arterial sheath. The papa catheter was also used to perform left heart catheterization, left ventriculogram and selective coronary angiogram. At the end of the procedure I broke scrub and reviewed the angiogram in greater detail in the viewing room. There was a hazy area in the proximal LAD which looked angiographically indeterminate/ambiguous. I was concerned this represented soft plaque therefore it was decided to perform intravascular ultrasound to the LAD system. Because of this therapeutic heparin was administered and a JL 3 guide catheter was placed into the left main artery followed by a choice extra-support wire. Intravascular ultrasound probe was advanced which demonstrated heavy soft plaque in the proximal LAD. The plaque burden was in excess of 70% however the MLA measured 5.3 mm???. Because of the discordance with the intravascular ultrasound it was decided to proceed with FFR. A [employer] FFR catheter was equalized and then advanced into the LAD followed by adenosine infusion. The FFR index reached 0.76 therefore the test was terminated prematurely before the entire infusion. A 4 mm x 34 mm resolute Erin stent was deployed at 16 brielle reducing the stenosis to 30%. A 4 mm x 12 mm noncompliant balloon was then placed in the distal portion of the stent still extending in the proximal LAD and deployed at 20 brielle to post dilate. 800 mcg of intracoronary nitroglycerin were administered. At the end of the procedure there were excellent angiographic results with a nice stepdown transition from the stent into the [place] vessel. The apparatus was removed the sheath was removed good hemostasis was achieved using TR banding patient was transferred to the postop putting in stable condition ANGIOGRAPHIC RESULTS The left main artery Normal The left anterior descending artery Has a proximal hazy ambiguous/angiographically indeterminate lesion in which IVUS demonstrated a greater than 70% area of plaque burden. The remaining vessel had diffuse 20% luminal irregularities The circumflex artery Nondominant with diffuse 10 to 20% luminal irregularities. The terminal obtuse marginal artery has a concentric 70 to 80% stenosis and is 2.25 to 2.5 mm in diameter The right coronary artery Is a dominant vessel and has mid vessel eccentric 20 to 30% stenosis The ESTRELLA ventriculogram reveals Normal 65% The left ventricular end-diastolic pressure 20 mmHg IMPRESSION Angiographically ambiguous proximal LAD disease demonstrating a hazy highly eccentric lesion which had a greater than 70% area plaque burden which produced an FFR index of 0.76 Successful stent to the proximal ID hemodynamically severe disease reduced to 0% with 1 drug-eluting stent Persistent moderate t
[2021-08-06 08:38] LABS: HCG Qualitative, Serum Negative (Negative)
[2021-08-06 11:31] LABS: CATHL Activated Clotting Time 283 SEC (74-125)
[2021-08-06 11:32] LABS: CATHL Activated Clotting Time > 400 SEC (74-125)
--- NOTE | 2021-08-06 14:35 | HMH.PHACLD ---
Juliann Najera has received discharge medication counseling on the following medications: -ASPIRIN -ATORVASTATIN -LOSARTAN -NADOLOL -BRILINTA (WATCH FOR SIGNS AND SYMPTOMS OF BLEEDING, BRUISING MAY LAST LONGER, BE SEEN IF YOU BUMP YOUR HEAD TO R/O HEAD BLEED) -IMDUR (FOR CHEST PAIN, MAY HAVE EFFECT ON BP, CAN CAUSE DIZZINESS OR LIGHTHEADEDNESS) -METFORMIN (HOLD UNTIL TUESDAY)
== END 2021-08-06 15:03 | disposition home or self-care (01) ==
LOC: CATHLAB 08:15
PROVIDERS: PCP Family Medicine; Visit Provider Internal Medicine
DX: I25.83 Coronary atherosclerosis due to lipid rich plaque (principal); I25.118 Atherosclerotic heart disease of native coronary artery with other forms of angina pectoris; E11.9 Type 2 diabetes mellitus without complications; Z79.84 Long term (current) use of oral hypoglycemic drugs; I11.0 Hypertensive heart disease with heart failure; I50.9 Heart failure, unspecified; Z87.891 Personal history of nicotine dependence; E03.9 Hypothyroidism, unspecified; Z79.899 Other long term (current) drug therapy
CPT/HCPCS: 84703; 85347; 92928; 92978; 93458; 93571; 99152; 99153; C1725; C1769; C1876; C9600; J0153; J1644; Q9967

== ENCOUNTER 2021-08-13 14:00 | Outpatient (RCR) | payer MEDICARE, SELFPAY | END 2021-10-26 15:00 | disposition home or self-care (01) | LOC: PT 14:00 | PROVIDERS: Visit Provider Internal Medicine | DX: I25.10 Atherosclerotic heart disease of native coronary artery without angina pectoris (principal); Z95.5 Presence of coronary angioplasty implant and graft | CPT/HCPCS: 93798 ==

== ENCOUNTER → 2022-01-05 14:02 | Outpatient (CLI) | payer MEDICARE, SELFPAY ==
--- NOTE | 2022-01-05 14:07 | US_ITS ---
FINAL REPORT CLINICAL HISTORY: area of pain OF LT LOWER EXT; pt says area is better after resting and elevating it FINDINGS: US EXTREMITY, NONVASCULAR, LIMITED, ANATOMIC SPECIFIC Limited sonographic images were obtained of the left lower extremity. No mass or fluid collection identified. IMPRESSION: No mass or fluid collection. Reviewed, Interpreted and Dictated by Renetta Baldwin MD Transcribed by Kevon Floyd Authenticated and [facility]
== END ==
PROVIDERS: PCP Family Medicine; Visit Provider Physician Assistant
DX: S80.12XA Contusion of left lower leg, initial encounter (principal)
CPT/HCPCS: 76882

== ENCOUNTER → 2022-06-16 14:58 | Outpatient (CLI) | payer MEDICARE, SELFPAY ==
--- NOTE | 2022-06-16 15:22 | XR_ITS ---
FINAL REPORT CLINICAL HISTORY: COVID TESTING COMPARISON: 03/11/2020 FINDINGS: SINGLE-VIEW CHEST The heart size is normal. The mediastinum is normal. The lungs are clear. There is no pneumothorax. IMPRESSION: No acute cardiopulmonary process. Reviewed, Interpreted and Dictated by Patrick Benson III, MD Transcribed by Zari Evans Authenticated and [facility]
[2022-06-16 15:26] LABS: Coronavirus 19, PCR Not Detected (NotDetected); Influenza A, PCR Not Detected (NotDetected); Influenza B, PCR Not Detected (NotDetected)
[2022-06-16 15:32] LABS: Basophils # 0.1 K/mm3 (0-0.2); Basophils % 0.7 % (0.1-2.0); Eosinophils # 0.2 K/mm3 (0.0-0.4); Eosinophils % 3.2 % (0.1-12.0); Hematocrit 34.1 % (37.0-47.0); Hemoglobin 11.2 g/dL (12.2-16.2); Mean Corpuscular HGB Conc 32.8 g/dL (31.8-35.4); Mean Corpuscular Hemoglobin 26.5 pg (27.0-31.2); Mean Corpuscular Volume 80.9 fl (81-99); Mean Platelet Volume 7.5 fl (7.4-10.4); Monocytes # 0.4 K/mm3 (0.1-1.0); Monocytes % 5.9 % (1.7-9.3); Neutrophils # 5.3 K/mm3 (1.8-7.8); Neutrophils % 76.2 % (37.0-80.0); Platelet Count 321 K/mm3 (142-424); Red Blood Count 4.21 M/mm3 (4.20-5.40); Red Cell Distribution Width 14.5 % (11.5-17.5)
[2022-06-16 17:23] LABS: Strep Scrn Group A (Rapid) Negative (Negative)
== END ==
PROVIDERS: PCP Family Medicine; Visit Provider Physician Assistant
DX: Z20.822 Contact with and (suspected) exposure to COVID-19 (principal)
CPT/HCPCS: 36415; 71045; 85025; 87430; C9803; U0003; U0005

== ENCOUNTER → 2022-12-28 15:52 | Outpatient (CLI) | payer MEDICARE, SELFPAY ==
--- NOTE | 2022-12-28 15:57 | MM_ITS ---
PROCEDURE INFORMATION: Exam: MG Bilateral Screening 3D Mammography Exam date and time: 12/28/2022 3:47 PM Age: 47 years old Clinical indication: Screening examination; No personal or family history of breast cancer TECHNIQUE: Imaging protocol: Bilateral Screening tomosynthesis and 2D mammography including computer-aided detection (CAD) when performed. COMPARISON: 1. MG MAMMO DIAGNOSTIC DIGITAL TOMOSYNTHESIS RIGHT W CAD 01/25/2020 1:46 PM 2. MG MAMMO SCREENING DIGITAL TOMOSYNTHESIS BILATERAL W CAD 01/17/2020 10:13 AM FINDINGS: MAMMOGRAPHY: Breast composition: There are scattered areas of fibroglandular density. Mass: None. Architectural distortion: None. Calcifications: No suspicious calcifications. Asymmetric density: None. Skin thickening: None. Axillary adenopathy: None. IMPRESSION: No mammographic evidence of malignancy. Annual screening is recommended unless otherwise clinically indicated. ASSESSMENT: BI-RADS Category 1: Negative
== END ==
PROVIDERS: PCP Family Medicine; Visit Provider Physician Assistant
DX: Z12.31 Encounter for screening mammogram for malignant neoplasm of breast (principal)
CPT/HCPCS: 77063; 77067

== ENCOUNTER 2023-04-18 11:51 | Outpatient (CLI) | payer MEDICARE, SELFPAY ==
--- NOTE | 2023-04-18 12:00 | XR_ITS ---
FINAL REPORT CLINICAL HISTORY: ankle fracture FINDINGS: LEFT ANKLE Cast obscures bony detail. There is a fracture of the anterior distal tibia and medial malleolus. Calcaneal tuberosity is obscured. Additional fracture here or elsewhere cannot be excluded. IMPRESSION: Bony detail obscured by overlying cast. Fracture of the anterior distal tibia and medial malleolus. Reviewed, Interpreted and Dictated by Patrick Benson III, MD Transcribed by Vanessa North Authenticated and [facility]
== END 2023-04-18 23:59 ==
LOC: RAD 11:52
PROVIDERS: PCP Family Medicine; Visit Provider Podiatrist
DX: M25.572 Pain in left ankle and joints of left foot; S82.892A Other fracture of left lower leg, initial encounter for closed fracture
CPT/HCPCS: 73610

== ENCOUNTER 2023-04-23 17:57 | Emergency (ER) | payer MEDICARE, SELFPAY ==
[2023-04-23] VITALS (9 sets, daily range): BP systolic 107–144; BP diastolic 70–97; PULSE 53–82; RESP 10–20; TEMP 36.7–37; O2SAT 97–100; BMI 34.7
--- NOTE | 2023-04-23 17:51 | ECG_ITS ---
APPROVED REPORT Exam: Resting ECG HR:63 bpm ECG Measurements Heart Rate 63 AXES NH 136 P 58 QRSd 86 QRS 69 QT 355 T 84 QTc 363 Conclusion SINUS RHYTHM NORMAL ECG UNCONFIRMED REPORT Electronically signed by : Kevan Morales MD 04/24/2023 15:12:41
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
--- NOTE | 2023-04-23 18:08 | XR_ITS ---
PROCEDURE INFORMATION: Exam: XR Chest Exam date and time: 04/23/2023 6:08 PM Age: 47 years old Clinical indication: Pain; Chest pressure; Additional info: Chest pain TECHNIQUE: Imaging protocol: Radiologic exam of the chest. Views: 1 view. Total images: 1 COMPARISON: CR XR CHEST PORTABLE 06/16/2022 3:43 PM FINDINGS: Tubes, catheters and devices: EKG leads are present. Lungs: Unremarkable. No consolidation. No pulmonary vascular congestion or edema. Pleural spaces: Unremarkable. No pleural effusion. No pneumothorax. Heart/Mediastinum: Unremarkable. No cardiomegaly. No mediastinal widening or hilar enlargement. Bones/joints: Unremarkable. Soft tissues: Breast attenuation artifact. Other findings: Lordotic positioning. IMPRESSION: No radiographically acute cardiopulmonary process.
[2023-04-23 18:16] LABS: Chloride 100 mmol/L (98-107); Sodium 137 mmol/L (136-145)
[2023-04-23 18:17] LABS: Potassium 3.7 mmoL/L (3.5-5.1)
[2023-04-23 18:19] LABS: Blood Urea Nitrogen 10 mg/dl (7-17); Creatinine Clearance Estimated 161 mL/min (50-200); Estimated Glomerular Filt Rate 108 ml/min (>60); GFR (African American) 131 ML/MIN (>60)
[2023-04-23 18:20] LABS: Anion Gap 11.7 mEq/L (5-15); Calcium 9.2 mg/dl (8.4-10.2); Carbon Dioxide 29 mmol/L (22.0-30.0); Glucose 87 mg/dl (74-100)
[2023-04-23 18:34] LABS: Troponin I < 0.01 ng/ml (0.00-0.034)
--- NOTE | 2023-04-23 19:00 | CT_ITS ---
PROCEDURE INFORMATION: Exam: CTA Chest With Contrast Exam date and time: 04/23/2023 7:06 PM Age: 47 years old Clinical indication: Sternal or substernal pain; Additional info: Immobilization, dyspnea, chest pain TECHNIQUE: Imaging protocol: Computed tomographic angiography of the chest with contrast. Exam focused on the arteries. 3D rendering (Not supervised by radiologist): MIP and/or 3D reconstructed images were created by the technologist. Total images: 433 Radiation optimization: All CT scans at this facility use at least one of these dose optimization techniques: automated exposure control; mA and/or kV adjustment per patient size (includes targeted exams where dose is matched to clinical indication); or iterative reconstruction. Contrast material: ISOVUE 370; Contrast volume: 100 ml; Contrast route: INTRAVENOUS (IV); COMPARISON: CR XR CHEST PORTABLE 04/23/2023 6:08 PM FINDINGS: Pulmonary arteries: Adequate contrast opacification the pulmonary arteries. Main pulmonary artery is normal in caliber. No acute pulmonary emboli. Aorta: No thoracic aortic aneurysm or dissection. Lungs: Trachea and main bronchi are widely patent. Lungs are clear and well expanded. No concerning infiltrate, airspace consolidation, pulmonary mass, or lung nodules. Pleural spaces: Unremarkable. No pneumothorax. No pleural effusion. Heart: Normal heart size. No pericardial effusion. Coronary arteries: Coronary artery calcifications including coronary stent in the LAD. Mediastinal space: No mediastinal mass or fluid collection. Lymph nodes: No mediastinal or hilar lymphadenopathy. Gallbladder and bile ducts: Status post cholecystectomy. No biliary ductal dilatation. Intraperitoneal space: No acute process in the upper abdomen. Bones/joints: Mild degenerative changes thoracic spine. No acute osseous abnormality. Soft tissues: Unremarkable. IMPRESSION: 1. No acute intrathoracic process. 2. No acute pulmonary emboli. 3. No aortic aneurysm or dissection. 4. Clear lungs.
[2023-04-23 19:05] LABS: NT Pro Brain Natriuretic Pep. 77.1 pg/mL (0-125)
[2023-04-23] MEDS: SODIUM CHLORIDE 0.9% 10ML SYR (RAD ONLY) 10 ML IV (19:18)
[2023-04-23] MEDS: 0.9 % SODIUM CHLORIDE 50 ML VIAL IV (19:18)
[2023-04-23] MEDS: IOPAMIDOL-370 (76%);100ML BOTTLE 100 ML IV (19:18)
--- NOTE | 2023-04-23 19:49 | PC.NURSE ---
rounded on patient, family @ bedside no other needs at this time
[2023-04-23 21:52] LABS: Troponin I < 0.01 ng/ml (0.00-0.034)
[2023-04-23 22:08] LABS: Hematocrit 38.3 % (37.0-47.0); Hemoglobin 12.1 g/dL (12.2-16.2); Mean Corpuscular Hemoglobin 25.9 pg (27.0-31.2); Red Blood Count 4.67 M/mm3 (4.20-5.40)
[2023-04-23 22:09] LABS: Mean Corpuscular HGB Conc 31.6 g/dL (31.8-35.4); Mean Platelet Volume 10.3 fl (7.4-10.4); Platelet Count 396 K/mm3 (142-424); Red Cell Distribution Width 14.5 % (11.5-17.5); White Blood Count 10.4 K/mm3 (4.8-10.8)
--- NOTE | 2023-04-23 22:42 | PC.NURSE ---
family @ bedside, no needs at this time
== END 2023-04-23 22:53 | disposition home or self-care (01) ==
PROVIDERS: Emergency Provider Emergency Medicine; PCP Family Medicine
DX: R07.89 Other chest pain (principal); E11.9 Type 2 diabetes mellitus without complications; I11.9 Hypertensive heart disease without heart failure; I25.10 Atherosclerotic heart disease of native coronary artery without angina pectoris; E78.5 Hyperlipidemia, unspecified; Z79.84 Long term (current) use of oral hypoglycemic drugs; Z79.85 Long-term (current) use of injectable non-insulin antidiabetic drugs; Z87.891 Personal history of nicotine dependence
CPT/HCPCS: 71045; 71275; 80048; 83880; 84484; 85025; 93005; 99285; Q9967

== ENCOUNTER 2023-05-06 13:27 | Outpatient (CLI) | payer MEDICARE, SELFPAY ==
--- NOTE | 2023-05-06 13:28 | CT_ITS ---
FINAL REPORT TECHNIQUE: Thin section axial CT images with coronal and sagittal reformats were performed. This study was performed with techniques to keep radiation doses as low as reasonably achievable (ALARA). Individualized dose reduction techniques using automated exposure control or adjustment of mA and/or kV according to the patient''s size were employed. CLINICAL HISTORY: fracture of left ankle FINDINGS: There is a transverse nondisplaced fracture through the base of the medial malleolus. The mortise is intact. There is a small plantar spur. IMPRESSION: Nondisplaced fracture through the medial malleolus. Reviewed, Interpreted and Dictated by Marin Tai MD Transcribed by Zari Evans Authenticated and [facility]
--- NOTE | 2023-05-06 13:42 | CA_ITS ---
APPROVED REPORT EXAM: Comprehensive 2D, Doppler, and color-flow Echocardiogram Biological Technical Officer: AVIS Gonzales, RVS Ht: 5 ft 2 in Wt: 191lbs BSA: 1.87 BP: 122/88 mmHg Indications: CAD,Pre-OP,HTN,DM, HLD 2D Dimensions Left Atrium 3.51 cm LA Volume 38.30 mL LA Volume Index 19.90 mL/m2 (M/F) 16-34 M-Mode Dimensions RVDd 2.18 cm (0.9-2.6) LA Diam 2.83 cm (1.9-4.0) LVDd 4.76 cm (3.5-5.7) LVDs 3.25 cm (3.5-5.7) IVSd 1.11 cm (0.6-1.1) PWd 0.86 cm (0.6-1.1) EF (Teich) 59.70% EPSs 0.43 cm FS 31.70% EDV (Teich) 105.40 mL ESV (Teich) 42.50 mL LV Diastology E Decel Time 367 (160-240 msec) E/A Ratio 0.98 MED A' 8.90 cm/s LAT A' 12.50 cm/s Aortic Valve RAGHAV Index 1.53 cm2/m2 AoV Peak Delon. 124.0 (50-130 cm/s) AO Peak GR. 6.20 mmHg AO Mean GR. 3.00 (<5 mmHg) AO VTI 22.2 (18-25 cm) RAGHAV (VTI) 2.93 (2.5-4.5 cm2) Mitral Valve MV A Velocity 45.0 (40-130 cm/s) E/A Ratio 0.98 Tricuspid Valve TR P. Velocity 201.00 cm/s RAP Estimate 10.00 mmHg RVSP 26.10 mmHg Left Ventricle The left ventricle is normal size. The left ventricular systolic function is normal. The left ventricular ejection fraction is within the normal range. There is normal left ventricular wall thickness. There is normal LV segmental wall motion. The left ventricular diastolic function is normal. LVEF is 55%. Right Ventricle The right ventricle is normal size. The right ventricular systolic function is normal. Atria The left atrium size is normal. The right atrium size is normal. There is no Doppler evidence of interatrial shunt. Aortic Valve The aortic valve is normal in structure. There is no aortic valvular stenosis. No aortic regurgitation is present. Mitral Valve The mitral valve is normal in structure. No evidence of mitral valve stenosis. There is no mitral valve regurgitation noted. Tricuspid Valve The tricuspid valve leaflets are thin and pliable. Trace tricuspid regurgitation. There is insufficient TR jet to estimate RVSP. Pulmonic Valve The pulmonary valve is normal in structure. Trace pulmonic regurgitation. Great Vessels The aortic root is normal in size. The ascending aorta is normal in size. IVC is normal in size and collapses >50% with inspiration. Pericardium There is no pericardial effusion. Other Information Study Quality: Adequate Conclusion Normal biventricular systolic function. No significant valvular stenosis or regurgitation. Electronically signed by : Renetta Abad MD 05/10/2023 18:21:07
--- NOTE | 2023-05-06 13:42 | US_ITS ---
FINAL REPORT CLINICAL HISTORY: decreased LE sensation, previous smoker, HTN, DM, hyperlipidemia, broken left medial malleolus, left rest pain, left claudication, left weak pulse. FINDINGS: COMPLETE ANKLE/BRACHIAL INDICES BILATERAL Complete ankle brachial indices were obtained. The right MICHELLE is 1.1. The left MICHELLE is 1.2. IMPRESSION: ABIs are within normal limits bilaterally. Reviewed, Interpreted and Dictated by Marin Tai MD Transcribed by Zari Evans Authenticated and [facility]
== END 2023-05-06 23:59 ==
LOC: RAD 13:28
PROVIDERS: PCP Family Medicine; Visit Provider Podiatrist
DX: M25.472 Effusion, left ankle (principal); S82.52XA Displaced fracture of medial malleolus of left tibia, initial encounter for closed fracture; S82.892A Other fracture of left lower leg, initial encounter for closed fracture; R09.89 Other specified symptoms and signs involving the circulatory and respiratory systems; I20.89 Other forms of angina pectoris
CPT/HCPCS: 73700; 93306; 93923

== ENCOUNTER 2023-05-18 06:07 | Day surgery (SDC) | payer MEDICARE, SELFPAY ==
[2023-05-16 14:07] VITALS: BMI 34.7
[2023-05-18] VITALS (10 sets, daily range): BP systolic 109–164; BP diastolic 56–100; PULSE 57–74; RESP 12–18; TEMP 36.1–36.3; O2SAT 94–100
[2023-05-18 06:25] LABS: Urine Pregnancy, HCG Qual. Negative (Negative)
[2023-05-18] MEDS: LACTATED RINGERS 1000ML 1,000 ML 25 ML IV (06:25)
[2023-05-18] MEDS: CEFAZOLIN SODIUM 1 GM in 0.9 % SODIUM CHLORIDE 50 ML IV (07:30)
--- NOTE | 2023-05-18 07:54 | P.PNANES_ITS ---
[facility] Disclaimer: The information contained in this section may have been updated after the patient was seen, as this information can be updated by other users. Medical History Abnormal electrocardiography Anemia due to chronic blood loss CAD (coronary artery disease) Dizziness DM2 (diabetes mellitus, type 2) GERD (gastroesophageal reflux disease) H/O coronary angiogram HTN (hypertension) Hyperlipidemia Hypothyroid Pre-diabetes Surgical History H/O section H/O heart artery stent H/O tubal ligation History of cholecystectomy History of excision of lesion Family History Other Cancer Coronary artery disease Heart attack Stroke Social History Smoking Status: Former smoker tobacco type: cigarettes packs per day: 1 second hand exposure: No alcohol intake: never substance use type: denies use current occupational status: unemployed Travel in the last 8 weeks: None household members: significant other housing: house current occupational exposures/hazards: No caffeine: Yes [facility] [place] Anesthesia Checklist Patient Identification Patient Identification: Verbal (Name & ) Structural Data Admitted From: Home Planned Operative Procedure/s: orif l ankle NPO Status Verified Time NPO: 00:00 Additional verifications Anesthesia Reactions: No Hx Blood Transfusions: No Blood Transfusion Reaction: No Airway Assessment Mallampati Score:: Class II C-Spine Mobility Assessed: Yes TMJ Mobility Assessed: Yes Dentition: Good Dentition Neurological Assessment Level of Consciousness: Awake, Alert and Appropriate Anesthesia Plan Anesthesia Risk discussed: Yes Anesthesia Plan: Verified ASA Class: III Anesthesia Type: General w/block
--- NOTE | 2023-05-18 08:32 | XR_ITS ---
FINAL REPORT CLINICAL HISTORY: orif left medial mal. fluoro time: .23 .83 mgy FINDINGS: FLUOROSCOPY LESS THAN 1 HOUR HISTORY: Intraoperative insertion of orthopedic hardware left ankle FINDINGS: Fluoroscopic guidance was provided for intraoperative insertion of orthopedic hardware in the left ankle. 2 spot films were obtained. 0.23 seconds of fluoroscopy time were used, with exposure of 0.83 mGy. IMPRESSION: As above. Reviewed, Interpreted and Dictated by Patrick Benson III, MD Transcribed by Nina Pastor Authenticated and [facility] [place] [place]
--- NOTE | 2023-05-18 09:00 | XR_ITS ---
FINAL REPORT CLINICAL HISTORY: ORIF left medial malleolus COMPARISON: 04/18/2023 FINDINGS: LEFT ANKLE: Three views of the left ankle were obtained. Interval postoperative change of the medial malleolus. The screw plate and multiple screws are present. Splint obscures detail. IMPRESSION: Postoperative changes as above. Reviewed, Interpreted and Dictated by Patrick Benson III, MD Transcribed by Iris Smith Authenticated and [facility]
--- NOTE | 2023-05-18 09:02 | EXP.ANES.I ---
[facility] Anesthesia Record Part I Anesthesia Record I Intake, IV Amount: 1,400 Hydration: Adequate Estimated blood loss (mL): 0 Urine output (mL): 0 Blood Pressure: 164/100 SaO2: 94 Pulse Rate: 57 Airway Patency: Patent Respiratory Rate: 12 Temperature: 97.3 F Patient is:: Awake and Stable Stable to PACU at:: 09:00
--- NOTE | 2023-05-18 09:06 | P.OP_ITS ---
Date of procedure: 05/18/23 Pre-op Diagnosis:: Left medial malleolus ankle fracture Delayed/non-union ankle fracture Type 2 diabetes Post-op Diagnosis:: Same Procedure performed:: Left ORIF medial malleolus Application of allograft Application of posterior splint Surgeon:: Nuria Garay DPM LINUX DEVELOPER:: Gerardo Vazquez Anesthesia: GETA and regional (Left regional nerve block) Estimated blood loss (mL): 10 Clinical Note:: 48-year-old diabetic female who presents with a left medial malleolus fracture. Initial date of injury was 04/01/2023. Recent CTs left ankle show fracture has no callus formation. Discussed bone stimulator after 90 days. Discussed conservative or surgical treatment options. Discussed since no callus formation on CT, high chance that it will not be healed within the next 6 weeks. Patient would like to proceed with surgery. All risks and benefits were discussed including but not limited to: damage to blood vessels and nerves, bleeding, infection, wound complications, delayed, mal or non-union of bone, post- traumatic arthritis, need for further surgery, implant failure, need for removal of implant, prolonged or permanent swelling of the extremity, prolonged or permanent pain or deformity, CRPS/RSD, DVT/PE, infection warranting oral or IV antibiotics, wound issues warranting wound debridement or amputation, and anesthetic complications including . No guarantees were given. All questions fully answered. The patient verbalized understanding and agreed to proceed with surgery. Consent was obtained. Cardiac clearance granted. eRx given for Rougon, Zofran, gabapentin, Ibuprofen, vit D. Operative findings:: Left medial malleolus ankle fracture. There is no callus formation at the area of the fracture consistent with delayed/nonunion. Transverse fracture is nondisplaced. Normal ankle joint alignment with no evidence of ligamentous instability PT tendon visible but intact with no evidence of tear or impingement. Operative note:: On this date and time patient was deemed an appropriate surgical candidate. Pre- op regional popliteal nerve block performed by anesthesia. With informed consent signed, the patient was taken to the operating theater. The patient was positioned supine. General anesthesia was induced. Tourniquet was applied to the left thigh. The left lower extremity was prepped and draped in normal sterile f ashion. IV Ancef infused. Left Medial Malleolus (Ankle) Fracture ORIF with allograft: A linear incision was made over the medial ankle, more anterior to access the medial ankle gutter. Dissection was carried thru skin and subcutaneous tissue with care taken to maintain surgical hemostasis and safely retract neurovascular structures. Dissection was then carried thru deep fascia to bone. The posterior tibial tendon was visible posteriorly and medially, and safely retracted during procedure. The med mall was clearly visualized and the fracture was identified. The fracture was noted to be transverse with minimal comminution. No callus formation noted to the fracture. Fracture was debrided. Due to the fracture being over 6 weeks old with no callus formation consistent with delayed healing and suspected nonunion, decision made to use allograft to pack into the fracture site. K wire was used to temp fixate. Intraoperative fluoroscopy used to check reduction. A 4.0 mm cannulated screw was then inserted compressing the fracture fragment. In standard technique medial hook plate inserted and secured with nonlocking and locking screws. An external stress test performed. No gross instability, medial clear space or syndesmotic widening. Negative anterior drawer. The wound was flushed with copious amounts normal sterile saline. Vicryl was then utilized to reapproximate the deep issue and subcutaneous tissue in a running fashion. Nylon was used to reapproximate the skin. The tourniquet was deflated at 56 minutes and immediate hyperemic response was noted to the digits. The wounds were cleansed. Xeroform, dry sterile dressing was then applied followed by a below knee modified Baird posterior splint. The patient was awoken from anesthesia and transfer to recovery with vital signs stable and neurovascular status intact. Patient tolerated procedure and anesthesia well without complication Materials: Vilex medial malleolus hook plate, locking screws x 2, nonlocking screw x1, 4.0 cannulated screw x1, [place] [employer] ?1 (5cc) Discharge/Plan: Patient is to maintain splint clean dry and intact. Polar pack/ice behind the knee and elevate on foam ramp or two pillows. Non weight bearing with RKS. Rx given for Rougon 7.5, Zofran and Motrin 800mg. Obtain post op films, 3 views ankle. Follow up in one week. Tourniquet time (min): 52 Condition: stable Disposition: same day Complications:: None
[2023-05-18] MEDS: MORPHINE 2MG/ML SYRINGE 2 MG IV ×3 (09:07→09:30)
[2023-05-18 09:29] LABS: POC Glucose,Bedside 86 (70-110)
[2023-05-18 09:42] LABS: 25-OH Vitamin D, Total 39.6 ng/mL (30-100)
[2023-05-18 09:55] LABS: POC Glucose,Bedside 91 (70-110)
--- NOTE | 2023-05-18 09:55 | PC.NURSE ---
PT'S PAIN IS TOLERABLE. ABLE TO WIGGLE TOES AND FEEL TOUCH L FOOT. NERVE BLOCK GIVING SOME RELIEF BUT CERTAINLY NOT COMPLETE.
--- NOTE | 2023-05-19 09:06 | EXP.ANES.II ---
[facility] Anesthesia Record Part II Anesthesia Record Part II Discharge Time: 09:30 Destination: Surgical Day Care (OP Surgery) PACU nurse assessment reviewed?: Yes Patient Condition:: Good Anesthesia Complications:: None Swallowing reflex intact?: Yes Airway Patency: Patent Cyanosis?: No Blood Pressure: 127/85 SaO2: 98 Respiratory Rate: 17 Pulse Rate: 74 Temperature: 97 F Mental Status: Alert & Oriented Pain level:: 7 Nausea and/or vomitting:: None Intake, IV Amount: 0 Hydration: Adequate
[2023-05-19 09:07] VITALS: BP 127/85; PULSE 74; RESP 17; TEMP 36.1; O2SAT 98
== END 2023-05-18 10:10 | disposition home or self-care (01) ==
PROVIDERS: PCP Family Medicine; Visit Provider Podiatrist
PROC: (CPT 27766; principal; 2023-05-18 07:30)
DX: S82.52XK Displaced fracture of medial malleolus of left tibia, subsequent encounter for closed fracture with nonunion (principal); E11.9 Type 2 diabetes mellitus without complications; I10 Essential (primary) hypertension; E78.5 Hyperlipidemia, unspecified; I25.10 Atherosclerotic heart disease of native coronary artery without angina pectoris; Z79.84 Long term (current) use of oral hypoglycemic drugs; Z79.899 Other long term (current) drug therapy; M25.472 Effusion, left ankle; E55.9 Vitamin D deficiency, unspecified; V89.2XXD Person injured in unspecified motor-vehicle accident, traffic, subsequent encounter
CPT/HCPCS: 27766; 73600; 73610; 76000; 81025; 82306; 82962; 96374; C1713; C1762; C1776; J2405

== ENCOUNTER 2023-06-16 08:03 | Outpatient (CLI) | payer MEDICARE, SELFPAY ==
--- NOTE | 2023-06-16 08:06 | XR_ITS ---
FINAL REPORT CLINICAL HISTORY: broke medial malleolus COMPARISON: 05/18/2023 FINDINGS: LEFT ANKLE: Three views of the left ankle were obtained. Postoperative changes are again noted in the medial malleolus and the medial aspect of the distal tibia. There is a calcified or bony fragment noted adjacent to the anterior tibia seen on the lateral film. The joint spaces and mortise are otherwise intact. There is no soft tissue abnormality. IMPRESSION: Postoperative changes as described. Calcified R bony fragment noted adjacent to the anterior tibia seen on the lateral Reviewed, Interpreted and Dictated by Patrick Benson III, MD Transcribed by Nina Pastor Authenticated and [facility]
== END 2023-06-16 23:59 ==
LOC: RAD 08:04
PROVIDERS: PCP Family Medicine; Visit Provider Podiatrist
DX: M25.572 Pain in left ankle and joints of left foot; S99.912A Unspecified injury of left ankle, initial encounter
CPT/HCPCS: 73610

== ENCOUNTER 2023-07-07 08:20 | Outpatient (CLI) | payer MEDICARE, SELFPAY ==
--- NOTE | 2023-07-07 08:23 | XR_ITS ---
FINAL REPORT CLINICAL HISTORY: Ankle Pain COMPARISON: 06/16/2023 FINDINGS: Left ankle Three views were obtained. There is no acute fracture or dislocation. There are sideplate and screws securing healed medial malleolar fracture. There is a small plantar spur. Soft tissue edema is seen over the medial malleolus, similar to previous. IMPRESSION: Postsurgical changes as above. Reviewed, Interpreted and Dictated by Marin Tai MD Transcribed by Zari Evans Authenticated and [facility]
== END 2023-07-07 23:59 ==
LOC: RAD 08:21
PROVIDERS: PCP Family Medicine; Visit Provider Podiatrist
DX: Z98.890 Other specified postprocedural states (principal); M25.572 Pain in left ankle and joints of left foot; M77.30 Calcaneal spur, unspecified foot
CPT/HCPCS: 73610

== ENCOUNTER 2023-08-04 10:05 | Outpatient (CLI) | payer MEDICARE, SELFPAY ==
--- NOTE | 2023-08-04 10:11 | XR_ITS ---
FINAL REPORT CLINICAL HISTORY: postop left ankle COMPARISON: 07/07/2023 FINDINGS: LEFT ANKLE Three views demonstrate no acute fracture or dislocation. There is a sideplate and screws securing the medial malleolus. The ankle mortise is intact. The visualized joint spaces are normally aligned. There is soft tissue swelling about the ankle. There is a small plantar spur. IMPRESSION: Stable postoperative changes. Reviewed, Interpreted and Dictated by Marin Tai MD Transcribed by Iris Smith Authenticated and [facility]
== END 2023-08-04 23:59 | disposition home or self-care (01) ==
LOC: RAD 10:06
PROVIDERS: PCP Family Medicine; Visit Provider Podiatrist
DX: M25.572 Pain in left ankle and joints of left foot (principal); S82.52XK Displaced fracture of medial malleolus of left tibia, subsequent encounter for closed fracture with nonunion; Z98.890 Other specified postprocedural states
CPT/HCPCS: 73610

== ENCOUNTER 2023-08-25 10:00 | Outpatient (RCR) | payer MEDICARE, SELFPAY ==
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
--- NOTE | 2023-08-22 22:14 | HMH.RHREAS ---
Rehab Reassessment Rehab OP Re-assessment Start: 07/13/23 10:06 Freq: Status: Active Protocol: Document 08/22/23 22:05 BUFFY (Rec: 08/22/23 22:13 BUFFY [id number]) E-signed By Hal Huang, PT Lower Extremity Functional Index Activities Today, do you or would you have any difficulty at all with: a.Any of your usual work, housework or A little bit of difficulty school activities b. Your usual hobbies, recreational or Moderate difficulty sporting activities c. Getting into or out of the bath Moderate difficulty d. Walking between rooms A little bit of difficulty e. Putting on your shoes or socks A little bit of difficulty f. Squatting A little bit of difficulty g. Lifting an object, like a bag of No difficulty groceries from the floor h. Performing light activities around No difficulty your home i. Performing heavy activities around Moderate difficulty your home j. Getting into or out of a car No difficulty k. Walking 2 blocks A little bit of difficulty l. Walking a mile Moderate difficulty m. Going up or down 10 stairs (about 1 Moderate difficulty flight of stairs) n. Standing for 1 hour Moderate difficulty o. Sitting for 1 hour No difficulty p. Running on even ground Quite a bit of difficulty q. Running on uneven ground Quite a bit of difficulty r. Making sharp turns while running fast Quite a bit of difficulty s. Hopping Quite a bit of difficulty t. Rolling over in bed No difficulty LEFI Score Lower Extremity Functional Index Score 51 Rehab Re-assessment Subjective Subjective Patient reports 70% improvement since start of care. Objective Objective Notes AROM: DF 2; PF WNL; INV WNL; EV 11 MMT: DF 4+/5; PF WNL; INV 4+/5 ; EV 3+/5 Pain: today 2/10; 5/10 at worst over past week Neuro: WNL Assessment Progress Assessment Progressing as Expected Assessment Notes Patient would benefit from continuing with skilled PT interventions in order to address functional limitations with all standing/ambulatory activities. Patient goals met STG 2 Goals Not Met All other Revised Goals NA Plan Plan Continue with PT approx 2 more weeks unless patient experiences any signifcant exacerbation of symptoms. Frequency of Therapy 2x/week Duration of therapy 4 weeks Time and Billing Re-Eval Time 16 Re-Eval Billing Units 1 PHYSICIAN CERTIFICATION: I certify the specified therapy services for Juliann Blancoft are required, authorized, and reviewed every 30 days.
== END 2023-08-25 10:05 | disposition home or self-care (01) ==
LOC: PT 10:00
PROVIDERS: Visit Provider Podiatrist
DX: M25.572 Pain in left ankle and joints of left foot (principal)
CPT/HCPCS: 97014; 97016; 97110; 97116; 97140; 97163; 97164; 97530; G0283

== ENCOUNTER 2023-09-29 09:48 | Outpatient (CLI) | payer MEDICARE, SELFPAY ==
--- NOTE | 2023-09-29 09:54 | XR_ITS ---
FINAL REPORT CLINICAL HISTORY: Ankle Pain f/u orif May COMPARISON: 06/16/2023 FINDINGS: LEFT ANKLE Three views demonstrate no acute fracture or dislocation. There are postoperative changes of the medial malleolus. The visualized joint spaces are normally aligned. The soft tissues are unremarkable. IMPRESSION: No acute bony abnormality. Reviewed, Interpreted and Dictated by Renetta Baldwin MD Transcribed by Vanessa North Authenticated and [facility]
== END 2023-09-29 23:59 | disposition home or self-care (01) ==
PROVIDERS: PCP Family Medicine; Visit Provider Podiatrist
DX: M25.472 Effusion, left ankle (principal); M25.572 Pain in left ankle and joints of left foot
CPT/HCPCS: 73610

== ENCOUNTER 2024-02-16 10:43 | Outpatient (CLI) | payer MEDICARE, SELFPAY ==
[2024-02-16 10:57] LABS: Basophils # 0.1 K/mm3 (0-0.2); Eosinophils # 0.1 K/mm3 (0.0-0.4); Eosinophils % 1.4 % (0.1-12.0); Hematocrit 36.5 % (37.0-47.0); Hemoglobin 12.5 g/dL (12.2-16.2); Lymphocytes # 2.2 K/mm3 (0.7-4.5); Lymphocytes % 25.1 % (10-50); Mean Corpuscular HGB Conc 34.1 g/dL (31.8-35.4); Mean Corpuscular Hemoglobin 29.4 pg (27.0-31.2); Mean Corpuscular Volume 86.1 fl (81-99); Mean Platelet Volume 7.6 fl (7.4-10.4); Monocytes # 0.4 K/mm3 (0.1-1.0); Monocytes % 4.3 % (1.7-9.3); Neutrophils # 5.9 K/mm3 (1.8-7.8); Neutrophils % 68.1 % (37.0-80.0); Platelet Count 354 K/mm3 (142-424); Red Blood Count 4.24 M/mm3 (4.20-5.40); Red Cell Distribution Width 14.5 % (11.5-17.5); White Blood Count 8.7 K/mm3 (4.8-10.8)
[2024-02-16 11:32] LABS: Albumin Level 4.1 g/dl (3.5-5.0); Chloride 104 mmol/L (98-107); Potassium 4.4 mmoL/L (3.5-5.1); Sodium 137 mmol/L (136-145)
[2024-02-16 11:34] LABS: Blood Urea Nitrogen 11 mg/dl (7-17); Estimated Glomerular Filt Rate 108 ml/min (>60); GFR (African American) 130 ML/MIN (>60)
[2024-02-16 11:35] LABS: Alanine Aminotransferase 14 U/L (12-78); Alkaline Phosphatase 54 U/L (38-126); Anion Gap 11.4 mEq/L (5-15); Aspartate Amino Transferase 19 U/L (14-36); Bilirubin,Direct 0.1 mg/dl (0.0-0.4); Bilirubin,Indirect 0.4 mg/dL (0.0-0.9); Bilirubin,Total 0.5 mg/dl (0.2-1.3); Bilirubin,Unconjugated 0.4 mg/dL (0.0-1.1); Calcium 8.9 mg/dl (8.4-10.2); Carbon Dioxide 26 mmol/L (22.0-30.0); Cholesterol 106 mg/dl (140-200); Glucose 94 mg/dl (74-100); Total Protein,Serum 6.5 g/dl (6.3-8.2); Triglycerides 80 mg/dl (30-150); VLDL Cholesterol 16 mg/dL (0-40)
[2024-02-16 11:36] LABS: Chol/HDL Ratio 2.5 (1-3.5); HDL Cholesterol 43 mg/dl (40-60)
[2024-02-16 11:46] LABS: Direct LDL Cholesterol 50.03 mg/dL (100-129)
[2024-02-16 11:52] LABS: Free T4 (Free Thyroxine) 1.19 ng/dl (0.78-2.19)
[2024-02-16 12:05] LABS: Thyroid Stimulating Hormone 0.67 uIU/mL (0.465-4.68)
== END 2024-02-16 23:59 | disposition home or self-care (01) ==
LOC: LAB 10:44
PROVIDERS: PCP Family Medicine; Visit Provider Physician Assistant
DX: E78.2 Mixed hyperlipidemia (principal); R73.03 Prediabetes; I25.10 Atherosclerotic heart disease of native coronary artery without angina pectoris; I10 Essential (primary) hypertension; R42 Dizziness and giddiness
CPT/HCPCS: 36415; 80048; 80061; 80076; 84439; 84443; 85025

== ENCOUNTER 2024-11-29 13:07 | Outpatient (CLI) | payer MEDICARE, SELFPAY ==
--- OUTSIDE RECORDS SUMMARY | 2024-06-13 06:00 | XMS_ITS ---
Author Organization [facility] Address [address] [facility] [address] [place] [id number] Care Team Providers Care Geotechnical Intern Name Role Phone Gisselle Gellerian Primary Care Provider Allergies No Known Allergies Results Component Value Reference Range Notes Glucose (In-House) Reviewed date:06/15/2024 09:43:23 AM Interpretation:97 Normal Performing Lab: Notes/Report: 97 Normal blood glucose 97 74 - 106 mg/dL Glycohemoglobin A1c (in hous e) Reviewed date:06/15/2024 09:43:23 AM Interpretation:5.5% Normal Performing Lab: Notes/Report: 5.5% Normal glycohemoglobin 5.5% 5 - 6.5 % P-Comprehensive Metabolic Pa binta (CMP) Reviewed date:06/15/2024 09:43:23 AM Interpretation:Normal Performing Lab: Notes/Report: Test performed by [facility], [facility] , [address], [place] [address] Mann Delacruz MD, Water Valve Repairer CLIA: [id number] Sodium 141 135-145 mmol/L Potassium 4.7 3.5-5.3 mmol/L Chloride 104 97-108 mmol/L CO2 25 22-32 mmol/L Glucose 83 65-99 mg/dL BUN 12 6-20 mg/dL Creatinine 0.54 0.50-1.00 mg/dL Calcium 9.2 8.6-10.4 mg/dL eGFR by Creatinine 114 >59 mL/min/1.73m2 Protein 6.7 6.0-8.3 g/dL Albumin 4.3 3.5-5.3 g/dL Alkaline Phosphatase 73 35-121 IU/L ALT (SGPT) 14 <5-47 IU/L AST (SGOT) 14 <5-40 IU/L Bilirubin, Total 0.2 <0.2-1.2 mg/dL A/G Ratio 1.8 1.1-2.5 P-T4 Free (thyroxine) Reviewed date:06/15/2024 09:43:23 AM Interpretation:Normal Performing Lab: Notes/Report: Test performed by [facility] [address] [place] [address] , [place] [address] Mann Delacruz MD, Water Valve Repairer CLIA: [id number] Thyroxine Free (free T4) 1.70 0.86-1.76 ng/dL P-Lipid Panel Reviewed date:06/15/2024 09:43:23 AM Interpretation:Normal Performing Lab: Notes/Report: Test performed by [facility] [address] [place] [address] , [address], [place] [address] Mann Delacruz MD, Water Valve Repairer CLIA: [id number] Cholesterol 128 <200 mg/dL Triglycerides 111 <150 mg/dL HDL Cholesterol 45 >39 mg/dL Cholesterol / HDL Ratio 2.84 0.00-4.44 Ratio Non-HDL Cholesterol 83 <130 mg/dL LDL Cholesterol (Calculation) 61 <130 mg/dL LDL Cholesterol Levels* Less than 100 mg/dL Optimal 100 to 129 mg/dL Near Optimal/ Above Optimal 130 to 159 mg/dL Borderline High 160 to 189 mg/dL High 190 mg/dL and above Very High * Categories as recommended by the 2004 ATPIII guidelines LDL/HDL Ratio 1.4 <3.3 Ratio LDL Cholesterol Patient History Test Date: 10/06/2022 LDL Results: 63 Units: mg/dL % Change: - Test Date: 06/13/2024 LDL Results: 61 Units: mg/dL % Change: -3% P-TSH Reviewed date:06/15/2024 09:43:23 AM Interpretation:0.27 Performing Lab: Notes/Report: Test performed by [facility] [address] [place] [address] , [place] [address] Mann Delacruz MD, Water Valve Repairer CLIA: [id number] TSH 0.27 0.43-5.25 mU/L P-Microalbumin/Creatinine, R andom Urine Sample Reviewed date:06/15/2024 09:43:23 AM Interpretation:Normal Performing Lab: Notes/Report: Test performed by [facility] [address] [place] [address] [place] [address] Mann Delacruz MD, Water Valve Repairer CLIA: [id number] Albumin/Creatinine Ratio, Urine 6 0-30 ug/m g Microalbumin, Urine, Random 1.1 Creatinine, Urine 170.0 REASON FOR VISIT yearly cpx Medications Medication SIG (Take, Route, Frequency, Duration) Notes Start Date End Date Status Linzess 290 MCG 1 cap(s) orally once a day Active Atorvastatin Calcium 20 MG 1 tab(s) orally once a day Active DULoxetine HCl 60 MG 1 cap(s) orally once a day Active Euthyrox 100 MCG 1 tablet in the morn ing on an empty stomach Orally Once a day Active Nadolol 20 MG 1 tab orally once a day Active Clopidogrel Bisulfate 75 MG 1 tab(s) orally once a day A ctive Losartan Potassium 50 MG 1 tab(s) orally once a day Active Ozempic (2 MG/DOSE) 8 MG/3ML 2 mg Subcutaneous once weekly Active metFORMIN HCl ER 500 MG Take 1 tablet by mouth once daily; Duration: 90 Active Problems Problem Type SNOMED Code ICD Code Onset Dates Problem Status W/U Status Risk Notes Problem Non morbid obesity (E66.9) Active confirmed Vital Signs Blood pressure systolic 122 mm Hg 06/14/19 25 Blood pressure diastolic 80 mm Hg 025 Heart Rate 73 /min 06/13/2024 Height 62 in 06/13/2024 Weight 174 lbs 06/13/2024 BMI 31.82 kg/m2 06/13/2024 Encounters Encounter [facility] Date [facility] [place] [facility] [address] [place] [id number] 06/13/2024 Gregor Geller Essential hypertensi on I10 ; Hyperlipidemia, unspecified hyperlipidemia type E78.5 ; Hypertriglyceridemia E78.1 ; Hypothyroidism, unspecified type E03.9 ; Coronary artery disease involving qawalangin heart, unspecified vessel or lesion type, unspecified whether angina present I25.10 ; Fibromyalgia M79.7 ; IFG (impaired fasting glucose) R73.01 and Non morbid obesity E66.9 Assessments Encounter Date Diagnosis (ICD Code) Assessment Notes Treatment Notes Treatment Clinical Notes Section Notes 06/13/2024 Essential hypertensi on (ICD-10 - I10) 06/13/2024 Hyperlipidemia, unspecified hyperlipidemia type (ICD-10 - E78.5) 06/13/2024 Hypertriglyceridemia (ICD-10 - E78.1) 06/13/2024 Hypothyroidism, unspecified type (ICD-10 - E03.9) 06/13/2024 Coronary artery dise ase involving qawalangin heart, unspecified vessel or lesion type, unspecified whether angina present (ICD-10 - I25.10) 06/13/2024 Fibromyalgia (ICD-10 - M79.7) 06/13/2024 IFG (impaired fastin g glucose) (ICD-10 - R73.01) 06/13/2024 Non morbid obesity (ICD-10 - E66.9) Plan Of Treatment Medication Medication Name Sig Start Date Stop Date Notes Linzess 290 MCG 1 cap(s) orally once a day Atorvastatin Calcium 20 MG 1 tab(s) orally once a day DULoxetine HCl 60 MG 1 cap(s) orally once a day Euthyrox 100 MCG 1 tablet in the morn ing on an empty stomach Orally Once a day Nadolol 20 MG 1 tab orally once a day Clopidogrel Bisulfate 75 MG 1 tab(s) orally once a day Losartan Potassium 50 MG 1 tab(s) orally once a day Ozempic (2 MG/DOSE) 8 MG/3ML 2 mg Subcutaneous once weekly Next Appt Details Follow Up: 6 Months, Reason: Provider Name:Gregor Griffin ry, 12/14/2024 10:00:00 AM, [address], [address], [place], [place], [id number], Progress Notes * BRET CATB:1975 (49 yo F)Acc No.[id number]:06/13/2024 Physical Patient: GONZALO STEWART Provider: Josemanuel Geller M.D. :1975 A ge:49 Y S ex:Female Date:06/13/2024 Address:[address] [place] [address] , [facility], [id number] Subjective: * Chief Complaints: * 1 . Yearly cpx. * HPI: C ardiology: 49 year old female presents with c/o Blood Pressure Elevated?Pt here to f/u on hypertension, states she is doing well and does not have any concerns. c/o Hyperlipidemia P t is fasting today. * ROS: D ERMATOLOGY: no R uzma. n o H [place]. G ASTROENTEROLOGY: no N ausea. n o V omiting. U ROLOGY: no D ifficulty urinating. n o B lood in urine. * Medical History: C HF, non ischemic, Dx: 2014 [facility] , [place], [place], Hypertension, Hyperlipidemia, Hypertriglyceridemia, Hypothyroidism, Dago's Thyroiditis, Fibromyalgia, Irritable Bowel Syndrom-C, MRSA skin abscess, multiple, Non- Epileptic (psychogenic) Seizures, Renal Insufficiency, Kidney Stones, Declared disabled by social security administration in 2017, Allergic Rhinitis, Impaired Fasting Glucose. * Surgical History: C section x2 , Tubal Ligation , Cholecystectomy 2004, Benign Tumor Removal, Larynx , Nasopalatine Cystic Tumor Removal , MRSA Abscess Drainage , Stent - Dr. Feng 05/2021. * Hospitalization/Major Diagno stic Procedure: C HF - 1 week stay , MRSA 5 day stay . * Family History: F ather: , Stomach, Liver, Pancreas, diagnosed with Heart Disease, Cancer. M other: , Lung, Lymph, Brain Cancer; Pulmonary Embolism; Hypothyroidism, diagnosed with Diabetes, Hypertension, Cancer. C hilmichele: alive. S ibricky: diagnosed with Hypertension. 2 brother(s) , 1 sister(s) . 2 daughter(s) - healthy. . Maternal Aunts and Uncles - Cancers run in the family, Sister - OD/Heart Attack. * Social History: C URRENT TOBACCO USE: No . P ast smoking status: previous history, 15 yr smoker, 1 ppd average. * Medications: T aking Ozempic (2 MG/DOSE) 8 MG/3ML Solution Pen-injector 2 mg Subcutaneous once weekly , Taking Clopidogrel Bisulfate 75 MG Tablet 1 tab(s) orally once a day , Taking Nadolol 20 MG Tablet 1 tab orally once a day , Taking DULoxetine HCl 60 MG Capsule Delayed Release Particles 1 cap(s) orally once a day , Taking Losartan Potassium 50 MG Tablet 1 tab(s) orally once a day , Taking Atorvastatin Calcium 20 MG Tablet 1 tab(s) orally once a day , Taking Linzess 290 MCG Capsule 1 cap(s) orally once a day , Taking metFORMIN HCl ER 500 MG Tablet Extended Release 24 Hour Take 1 tablet by mouth once daily , Taking Euthyrox 100 MCG Tablet 1 tablet in the morning on an empty stomach Orally Once a day , Discontinued Aspirin 81 MG Tablet Delayed Release 1 tab(s) orally once a day , Discontinued Albuterol Sulfate HFA 108 (90 Base) MCG/ACT Aerosol Solution 1-2 puff(s) inhaled every 6 hours, prn , Discontinued Fluconazole 150 MG Tablet 1 tablet Orally once daily , Discontinued Ciclopirox 8 % Solution 1 application Externally Once a day , Discontinued Clotrimazole-Betamethasone 1-0.05 % Cream 1 application Externally Twice a day , Discontinued Ondansetron 4 MG Tablet Disintegrating 1 tablet on the tongue and allow to dissolve Orally three times a day as needed , Discontinued Cefdinir 300 MG Capsule 1 cap(s) Orally Two times a day , Medication List reviewed and reconciled with the patient * Allergies: N .K.D.A. Objective: * Vitals: W t:174, Temp:97.8, BP:122/80, HR:73, Nurse:leatha, Ht: 62, BMI:31.82. * Examination: E ndocrinology: General Appearance: N AD. H EENT: u nremarkable.?Thyroid exam: n o enlargement. H eart: R SR. L ungs: c lear to auscultation.?Extremities: n o leg edema. N eurologic Exam: I ntact, gait normal. ? Assessment: * Assessment: 1. E ssential hypertension - I10 (Primary) 2 . H yperlipidemia, unspecified hyperlipidemia type - E78.5 3 . H ypertriglyceridemia - E78.1 4 . H ypothyroidism, unspecified type - E03.9 5 . C oronary artery disease involving qawalangin heart, unspecified vessel or lesion type, unspecified whether angina present - I25.10? 6. F ibromyalgia - M79.7 7 . I FG (impaired fasting glucose) - R73.01 8 . N on morbid obesity - E66.9 Plan: * Treatment: Value Reference Range A /G Ratio 1.8 1.1-2.5 - * A lbumin 4.3 3.5-5.3 - g/dL * A lkaline Phosphatase 73 35-121 - IU/L * A LT (SGPT) 14 <5-47 - IU/L * A ST (SGOT) 14 <5-40 - IU/L * B ilirubin, Total 0.2 <0.2-1.2 - mg/dL * B UN 12 6-20 - mg/dL * C alcium 9.2 8.6-10.4 - mg/dL * C hloride 104 97-108 - mmol/L * C O2 25 22-32 - mmol/L * C reatinine 0.54 0.50-1.00 - mg/dL * G lucose 83 65-99 - mg/dL * P otassium 4.7 3.5-5.3 - mmol/L * S odium 141 135-145 - mmol/L * P rotein 6.7 6.0-8.3 - g/dL * e GFR by Creatinine 114 >59 - mL/min/1.73m2 * Yahaira Moe 06/15/2024 09:43 :15 AM > See phone encounter ?LAB: P-Microalbumin/Creatinine, Random Urine Sample (Collection Date & Time - 06/13/2024 09:43 AM)?Normal* Value Reference Range A lbumin/Creatinine Ratio, Urine 6 0-30 - ug /mg * C reatinine, Urine 170.0 - mg/dL * M icroalbumin, Urine, Random 1.1 - mg/dL * Yahaira Moe 06/15/2024 09:43 :15 AM > See phone encounter 2.?Hyperlipidemia, unspecified hyperlipidemia type? Continue Atorvastatin Calcium Tablet, 20 MG, 1 tab(s), orally, once a day.?LAB: P-Comprehensive Metabolic Panel (CMP) (Collection Date & Time - 06/13/2024 09:43 AM)?Normal* Value Reference Range A /G Ratio 1.8 1.1-2.5 - * A lbumin 4.3 3.5-5.3 - g/dL * A lkaline Phosphatase 73 35-121 - IU/L * A LT (SGPT) 14 <5-47 - IU/L * A ST (SGOT) 14 <5-40 - IU/L * B ilirubin, Total 0.2 <0.2-1.2 - mg/dL * B UN 12 6-20 - mg/dL * C alcium 9.2 8.6-10.4 - mg/dL * C hloride 104 97-108 - mmol/L * C O2 25 22-32 - mmol/L * C reatinine 0.54 0.50-1.00 - mg/dL * G lucose 83 65-99 - mg/dL * P otassium 4.7 3.5-5.3 - mmol/L * S odium 141 135-145 - mmol/L * P rotein 6.7 6.0-8.3 - g/dL * e GFR by Creatinine 114 >59 - mL/min/1.73m2 * Yaahira Moe 06/15/2024 09:43 :15 AM > See phone encounter ?LAB: P-Lipid Panel (Collection Date & Time - 06/13/2024 09:43 AM)?Normal* Value Reference Range C holesterol / HDL Ratio 2.84 0.00-4.44 - Ratio * C holesterol 128 <200 - mg/dL * H DL Cholesterol 45 >39 - mg/dL * L DL Cholesterol (Calculation) 61 <130 - mg/d L * L DL/HDL Ratio 1.4 <3.3 - Ratio * N on-HDL Cholesterol 83 <130 - mg/dL * T riglycerides 111 <150 - mg/dL * Yahaira Moe 06/15/2024 09:43 :15 AM > See phone encounter 3.?Hypothyroidism, unspecified type? Continue Euthyrox Tablet, 100 MCG, 1 tablet in the morning on an empty stomach, Orally, Once a day. ?LAB: P-T4 Free (thyroxine) (Collection Date & Time - 06/13/2024 09:43 AM)? Normal* Value Reference Range T hyroxine Free (free T4) 1.70 0.86-1.76 - ng/d L * Yahaira Moe 06/15/2024 09:43 :15 AM > See phone encounter ?LAB: P-TSH (Collection Date & Time - 06/13/2024 09:43 AM)?0.27* Value Reference Range T SH 0.27 L 0.43-5.25 - mU/L * Yahaira Moe 06/15/2024 09:43 :15 AM > See phone encounter 4.?Coronary artery disease involving qawalangin heart, unspecified vessel or lesion type, unspecified whether angina present? Continue Ozempic (2 MG/DOSE) Solution Pen-injector, 8 MG/3ML, 2 mg, Subcutaneous, once weekly;?Continue Clopidogrel Bisulfate Tablet, 75 MG, 1 tab(s), orally, once a day.??5.?Fibromyalgia? Continue DULoxetine HCl Capsule Delayed Release Particles, 60 MG, 1 cap(s), orally, once a day. ?6.?IFG (impaired fasting glucose)?LAB: Glucose (In-House) (Collection Date & Time - 06/13/2024)?97 Normal* Value Reference Range b lood glucose 97 74 - 106 mg/dL * lEaine Palacios 06/13/2024 11:21:01 AM > Payal Yahaira 06/15/2024 09:43:15 AM > See phone encounter ?LAB: Glycohemoglobin A1c (in house) (Collection Date & Time - 06/13/2024)? 5.5% Normal* Value Reference Range g lycohemoglobin 5.5% 5 - 6.5 % * Elaine Palacios 06/13/2024 11:26:38 AM > PayalYahaira paulson 06/15/2024 09:43:15 AM > See phone encounter 7.?Others? Continue Linzess Capsule, 290 MCG, 1 cap(s), orally, once a day.?? * Procedure Codes: G 2211 Complex e/[place], [address] GLUCOSE TEST, 53186 GLYCATED HEMOGLOBIN TEST, Modifiers: QW , 3044F HG A1C LEVEL LT 7.0%, 3074F SYST BP LT 130 MM HG, 3079F DIAST BP 80-89 MM HG * Follow Up: 6 Months * Images: Billing Information: * Visit Code: 16423 Office Visit, Est Pt., Level 4. * Procedure Codes: G2211 Complex e/[place]. [address] GLUCOSE TEST. 53137 GLYCATED HEMOGLOBIN TEST. Modifiers: QW 3044F HG A1C LEVEL LT 7.0%. 3074F SYST BP LT 130 MM HG. 3079F DIAST BP 80-89 MM HG. * Electronic signature of Hyacinth Geller MD on 11/29/2024 at 01:12 PM EDT Sign off status: Pending * Provider: Josemanuel Geller M.D. Date: 0 06/13/2024 Generated for Isma zhao/Sue/eTmargaritasmitting on: 0 11/29/2024 01:12 PM EDT History and Physical Notes * HPI (History of Present Illness) Category Sub-Category Detail Notes Category Not es Cardiology Blood Pressure Elevated Pt here to f/u on hypertension, states she is doing well and does not have any concerns Hyperlipidemia Pt is fasting today Examination Category Sub-Category Detail Notes Category Not es Endocrinology HEENT: unremarkable Heart: RSR Lungs: clear to auscultatio n Extremities: no leg edema General Appearance: NAD Neurologic Exam: Intact, gait normal Thyroid exam: no enlargement
--- OUTSIDE RECORDS SUMMARY | 2024-11-07 07:30 | XMS_ITS ---
[facility] Address [address] [address] [place] [id number] Care Team Providers Care Financial Services Intern Name Role Phone Gisselle Gellerian Primary Care Provider Allergies No Known Allergies Results Component Value Reference Range Notes CBC Fingerstick (in house) Reviewed date:11/07/2024 12:42:40 PM Interpretation: Performing Lab: Notes/Report: wbc 8.1 3.5 - 10 lym 27.1% 15 - 50 mid 6.6% 2 - 15 gran 66.3% 35 - 80 rbc 4.83 3.5 - 5.5 hgb 13.4 11.5 - 16.5 hct 41.1 35 - 55 mcv 85.1 75 - 100 mch 27.8 25 - 35 mchc 32.7 31 - 38 plat 243 100 - 400 REASON FOR VISIT Sinus Infection, Dizziness Medications Medication SIG (Take, Route, Frequency, Duration) Notes Start Date End Date Status DULoxetine HCl 60 MG 1 cap(s) orally once a day Active Euthyrox 100 MCG 1 tablet in the morn ing on an empty stomach Orally Once a day; Duration: 90 days Active Atorvastatin Calcium 20 MG 1 tab(s) orally once a day Active Zithromax Z-James 250 MG as directed Orall y daily; Duration: 5 days 11/07/2024 Active metFORMIN HCl ER 500 MG Take 1 tablet by mouth once daily; Duration: 90 Active Linzess 290 MCG 1 cap(s) orally once a day Active Ozempic (2 MG/DOSE) 8 MG/3ML 2 mg Subcutaneous once weekly Active Clopidogrel Bisulfate 75 MG 1 tab(s) orally once a day A ctive Losartan Potassium 50 MG 1 tab(s) orally once a day Active Nadolol 20 MG 1 tab orally once a day Active Problems Problem Type SNOMED Code ICD Code Onset Dates Problem Status W/U Status Risk Notes Problem Peripheral circulatory disorder associated with diabetes mellitus (051225900) Type 2 diabetes mellitus with other circulatory complications (E11.59) Active confirmed Problem Obese class I (79078107171729 7) BMI 33.0-33.9,adult (Z68.33) Active confirmed Vital Signs Blood pressure systolic 120 mm Hg 11/08/19 25 Blood pressure diastolic 72 mm Hg 025 Heart Rate 79 /min 11/07/2024 Height 62 in 11/07/2024 Weight 180.6 lbs 11/07/2024 BMI 33.03 kg/m2 11/07/2024 Encounters Encounter Location Date Provider Diagnosis [facility] [address] [place] [id number] 11/07/2024 Gregor Geller Acute non-recurrent maxillary sinusitis J01.00 ; Type 2 diabetes mellitus with other circulatory complications E11.59 ; Morbid obesity E66.01 and BMI 33.0-33.9,adult Z68.33 Assessments Encounter Date Diagnosis (ICD Code) Assessment Notes Treatment Notes Treatment Clinical Notes Section Notes 11/07/2024 Acute non-recurrent maxillary sinusitis (ICD-10 - J01.00) 11/07/2024 Type 2 diabetes mellitus with other circulatory complications (ICD-10 - E11.59) 11/07/2024 Morbid obesity (ICD-10 - E66.01) 11/07/2024 BMI 33.0-33.9,adult (ICD-10 - Z68.33) Plan Of Treatment Medication Medication Name Sig Start Date Stop Date Notes Zithromax Z-James 250 MG as directed Orall y daily; Duration: 5 days 11/07/2024 Next Appt Details Follow Up: via phone to repo rt progress, Reason: Provider Name:Gregor Griffin ry, 12/14/2024 10:00:00 AM, [address], [address], [place], [id number], Progress Notes * MICHELINE CATSYLVESTERB:1975 (49 yo F)Acc No.[id number]:11/07/2024 Progress Notes Patient: GONZALO STEWART Provider: Josemanuel Geller M.D. :1975 A ge:49 Y S ex:Female Date:11/07/2024 Address:[address] [place] [address] , [place], [id number] Subjective: * Chief Complaints: * 1 . Sinus Infection, Dizziness. * HPI: E NT/respiratory: 49 year old female presents with c/o cough P t complains of greenish yellow sputum production cough f or about 2 weeks. Associated with headache, nasal congestion and dizziness. * ROS: D ERMATOLOGY: no R umza. n o H [place]. G ASTROENTEROLOGY: no N ausea. n o V omiting. U ROLOGY: no D ifficulty urinating. n o B lood in urine. * Medical History: C HF, non ischemic, Dx: 2013 [facility] , [place], [place], Hypertension, Hyperlipidemia, Hypertriglyceridemia, Hypothyroidism, Dago's Thyroiditis, [...] ather: , Stomach, Liver, Pancreas, diagnosed with Cancer, Heart Disease. M other: , Lung, Lymph, Brain Cancer; Pulmonary Embolism; Hypothyroidism, diagnosed with Cancer, Hypertension, Diabetes. C hildren: alive. S iblings: diagnosed with Hypertension. 2 brother(s) , 1 sister(s) . 2 daughter(s) - healthy. . Maternal Aunts and Uncles - Cancers run in the family, Sister - OD/Heart Attack. * Social History: P ast smoking status: previous history, 15 yr smoker, 1 ppd average. * Medications: T aking Nadolol 20 MG Tablet 1 tab orally once a day , Taking Losartan Potassium 50 MG Tablet 1 tab(s) orally once a day , Taking Ozempic (2 MG/DOSE) 8 MG/3ML Solution Pen-injector 2 mg Subcutaneous once weekly , Taking Clopidogrel Bisulfate 75 MG Tablet 1 tab(s) orally once a day , Taking Linzess 290 MCG Capsule 1 cap(s) orally once a day , Taking Atorvastatin Calcium 20 MG Tablet 1 tab(s) orally once a day , Taking DULoxetine HCl 60 MG Capsule Delayed Release Particles 1 cap(s) orally once a day , Taking Euthyrox 100 MCG Tablet 1 tablet in the morning on an empty stomach Orally Once a day , Taking metFORMIN HCl ER 500 MG Tablet Extended Release 24 Hour Take 1 tablet by mouth once daily , Medication List reviewed and reconciled with the patient * Allergies: N .K.D.A. Objective: * Vitals: W t: 180.6, Temp: 97.8, BP: 120/72, HR: 79, Nurse: gisell, Ht: 62, BMI:33.03. * Examination: E NT/Respiratory: General Appearance: N AD. E yes: P ERRLA, sclera clear. S inuses : t kelli maxillary sinuses bilaterally. O ral cavity : e rythema without exudate on pharynx. N lizet : n o cervical lymphadenopathy. H eart : R RR, normal S1 S2. L ungs: c lear to auscultation bilaterally. Assessment: * Assessment: 1. A cute non-recurrent maxillary sinusitis - J01.00 (Primary) 2 . T ype 2 diabetes mellitus with other circulatory complications - E11.59 3 . M orbid obesity - E66.01 4 . B AL 33.0-33.9,adult - Z68.33 Plan: * Treatment: Value Reference Range w bc 8.1 3.5 - 10 * l ym 27.1% 15 - 50 * m id 6.6% 2 - 15 * g ran 66.3% 35 - 80 * r bc 4.83 3.5 - 5.5 * h gb 13.4 11.5 - 16.5 * h ct 41.1 35 - 55 * m cv 85.1 75 - 100 * m ch 27.8 25 - 35 * m chc 32.7 31 - 38 * p lat 243 100 - 400 * Elaine Palacios 11/07/2024 11:56: 23 AM EDT > Provider reviewed results while patient in office. * Procedure Codes: G 2211 Complex e/[place], [address] CBC WITH AUTO DIFF, 83085 CAPILLARY BLOOD DRAW, G8783 BP SCR PRFRM RCMDD DEFIND SCR INTVL, G8752 MOST RECENT SYSTOLIC BP < 140MM HG, G8754 MOST RECENT DIASTOLIC BP < 90MM HG * Follow Up: v ia phone to report progress * Images: Billing Information: * Visit Code: 12151 Office Visit, Est Pt., Level 3. * Procedure Codes: G2211 Complex e/[place]. [address] CBC WITH AUTO DIFF. 94859 CAPILLARY BLOOD DRAW. G8783 BP SCR PRFRM RCMDD DEFIND SCR INTVL. G8752 MOST RECENT SYSTOLIC BP < 140MM HG. G8754 MOST RECENT DIASTOLIC BP < 90MM HG. * Electronic signature of Hyacinth Geller MD on 11/29/2024 at 01:13 PM EDT Sign off status: Pending * Provider: Josemanuel Geller M.D. Date: 0 11/07/2024 Generated for Isma zhao/Sue/Ermaransmitting on: 0 11/29/2024 01:13 PM EDT History and Physical Notes * HPI (History of Present Illness) Category Sub-Category Detail Notes Category Not es ENT/respiratory cough Pt complains of greenish yellow sputum production cough for about 2 weeks. Associated with headache, nasal congestion and dizziness Examination Category Sub-Category Detail Notes Category Not es ENT/Respiratory Oral cavity : erythema without exudate on pharynx Sinuses : tender maxillary sin uses bilaterally Neck : no cervical lymphade nopathy Heart : RRR, normal S1 S2 Lungs: clear to auscultatio n bilaterally General Appearance: NAD Eyes: PERRLA, sclera clear
--- OUTSIDE RECORDS SUMMARY | 2024-11-13 08:57 | XMS_ITS ---
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 Name Role Phone Gregor Geller Primary Care Provider [phone] REASON FOR VISIT due payal,col Encounters Encounter Location Date Provider Diagnosis [facility] [address] [place] [id number] 11/13/2024 Gregor Geller Breast cancer screening by mammogram Z12.31 Assessments Encounter Date Diagnosis (ICD Code) Assessment Notes Treatment Notes Treatment Clinical Notes Section Notes 11/13/2024 Breast cancer screening by mammogram (ICD-10 - Z12.31) Plan Of Treatment Pending Test Test Name Order Date Mammogram 11/13/2024 Next Appt Details Provider Name:Gregor Griffin ry, 12/14/2024 10:00:00 AM, [address], [address], [place], [id number], Progress Notes * BRET CATB:1975 (49 yo F)Acc No.[id number]:11/13/2024 Patient: GONZALO STEWART :1975 A ge:49 Y S ex:Female Address:[facility] [place], [address] Subjective: * Chief Complaints: * D ue payal,col * Medical History: * Surgical History: * Hospitalization/Major Diagno stic Procedure: * Medications: Objective: * Vitals: * Physical Examination: Assessment: * Assessment: 1. B reast cancer screening by mammogram - Z12.31 (Primary) Plan: * Treatment: * Procedure Codes: * true * Date: Generated for Isma zhao/Sue/Pramod on: 0 11/29/2024 01:12 PM EDT
--- NOTE | 2024-11-29 13:09 | MM_ITS ---
PROCEDURE INFORMATION: Exam: MG Bilateral Screening 3D Mammography Exam date and time: 11/29/2024 1:07 PM Age: 49 years old Clinical indication: Screening examination TECHNIQUE: Imaging protocol: Bilateral Screening tomosynthesis and 2D mammography including computer-aided detection (CAD) when performed. COMPARISON: MG MM DIG SCREENING MAMM BI W/CAD 12/28/2022 3:47 PM FINDINGS: MAMMOGRAPHY: Breast composition: There are scattered areas of fibroglandular density. Mass: No suspicious masses. Architectural distortion: None. Calcifications: No suspicious calcifications. Asymmetric density: None. Skin thickening: None. Axillary adenopathy: None. IMPRESSION: No mammographic evidence of malignancy. Annual screening is recommended unless otherwise clinically indicated. ASSESSMENT: BI-RADS Category 1: Negative.
--- OUTSIDE RECORDS SUMMARY | 2024-11-29 13:12 | XMS_ITS | Clinical Summary ---
Author Organization [facility] ystem Address [address] [place] [address] Care Team Providers Care Executive Candidate Developer Name Role Phone Asmita Sky Primary Care Provider [phone] Allergies Active Allergy Reactions Criticality Noted Date Comments Mupirocin Rash Low 06/02/2016 Atorvastatin Other (See Comments) Low 07/07/2016 Severe body aches Medications aspirin 81 MG EC tablet Take 81 mg by mouth Daily. Active OMEGA-3 KRILL OIL PO Take 1 capsule by mouth Daily. Active coenzyme Q10 100 MG capsule Take 100 mg by mouth Daily. Active omeprazole (priLOSEC) 20 MG capsuleIndication s:Gastroesophagea l reflux disease, esophagitis presence not specified TAKE 1 CAPSULE BY MOUTH ONCE DAILY 30 capsule 2 8 Active fluticasone (Flonase) 50 MCG/ACT nasal sprayIndications: Acute maxillary sinusitis, recurrence not specified 2 sprays into the nostril(s) as directed by provider Daily. 16 g 5 0 Active cetirizine (zyrTEC) 10 MG tablet Take 10 mg by mouth Daily. Active levothyroxine (Synthroid) 112 MCG tablet Take 1 tablet by mouth Daily. 90 tablet 1 0 Active Iron, Ferrous Sulfate, 325 (65 Fe) MG tabletIndications :Iron deficiency anemia, unspecified iron deficiency anemia type Take 1 tablet by mouth Daily. 30 tablet 0 Active Linzess 290 MCG capsule capsuleIndication s:Irritable bowel syndrome with constipation TAKE 1 CAPSULE BY MOUTH ONCE DAILY IN THE MORNING BEFORE BREAKFAST 90 capsule 1 Active DULoxetine (CYMBALTA) 60 MG capsuleIndication s:Depression with anxiety,Fibromyal bladimir Take 1 capsule by mouth once daily 90 capsule 1 Active Active Problems Problem Noted Date Diagnosed Date BMI 38.0-38.9,adult 10/30/2018 Fibromyalgia 10/30/2018 Irritable bowel syndrome with constipation 10/30 Acute bronchitis due to other specified organism s 03/07/2017 Lipoma of torso 06/27/2016 Coronary artery disease invo lving seneca coronary artery of seneca heart without angina pectoris Overview (03/23/2016): a. Nuclear stress test (05/11/2013): possible anterior ischemia. Excellent exercise capacity. b. Cardiac catheterization (05/11/2013): mild nonobstructive coronary artery disease with 30% stenosis of proximal LAD. LVEF 60%. Essential hypertension Hyperlipidemia LDL goal <70 Hypothyroidism Pancreatitis Depression with anxiety Resolved Problems Problem Noted Date Diagnosed Date Resolved Date Class 2 obesity without seri ous comorbidity with body mass index (BMI) of 39.0 to 39.9 in adult 06/20/2019 01/01/2020 Tobacco abuse 03/07/2017 Immunizations Immunization Administration Dates Next Due FluMist 2-49yrs 12/11/2015 Pneumococcal, Unspecified 01/07/2016 Tdap 06/02/2016 Family History Medical History Relation Name Comments No Known Problems Brother 1 39 No Known Problems Brother 2 41 Cancer Father stomach Heart attack Father early 40s Heart disease Father Hypertension Father Stomach cancer Father Stroke Maternal Grandfather Anxiety disorder Mother Arthritis Mother Cancer Mother lung Lung cancer Mother Thyroid disease Mother Diabetes Paternal Grandfather Hypertension Paternal Grandfather Diabetes Paternal Grandmother Hypertension Paternal Grandmother Obesity Paternal Grandmother Breast cancer Neg Hx Ovarian cancer Neg Hx Relation Name Status Comments Brother 1 39 Alive Brother 2 41 Alive Father (Age 48) Maternal Grandfather (Age 58) [facility] [place] Maternal Grandmother Alive Mother (Age 50) Paternal Grandfather Alive Paternal Grandmother Alive Social History Tobacco Use Types Packs/Day Years Used Date Smoking Tobacco: Former Cigarettes 1 18 0 12/05/1998 - 12/05/2016 Smokeless Tobacco: Never Tobacco Cessation:Ready to Q uit: Yes Alcohol Use Standard Drinks/Week Comments Yes 0 (1 standard drink = 0.6 oz pur e alcohol) 2 times per month PHQ-2 Answer Date Recorded Retired Total Score 0 01/01/2020 Abuse Screen Answer Date Recorded Unsafe at Home or Work/School Not on file Feels Threatened by Someone? Not on file 12/2022 Does Anyone Keep You from Co ntacting Others or Doint Things Outside the Home? Not on file 01/17/2023 Physical Sign of Abuse Present Not on file 1 Housing Stability Answer Date Recorded Current Living Arrangements Not on file 12/2022 Potentially Unsafe Housing Conditions Not on cayden e 01/17/2023 Family and Community Support Answer Jasson e Recorded Help with Day-to-Day Activities Not on file 01/17/2023 Lonely or Isolated Not on file 01/17/2023 Employment Answer Date Recorded Do you want help finding or keeping work or a concetta b? Not on file 01/17/2023 Disabilities Answer Date Recorded Concentrating, Remembering, or Making Decisions Difficulty Not on file 01/17/2023 Doing Errands Independently Difficulty Not on fi le 01/17/2023 Education Answer Date Recorded Help with school or training? Not on file Preferred Language Not on file 01/17/2023 Comments No Sex and Gender Information Value Date Recorded Sex Assigned at Not on file Legal Sex Female 10:39 AM EDT Gender Identity Not on file Sexual Orientation Not on file Last Filed Vital Signs Vital Sign Reading Time Taken Comments Blood Pressure 140/88 01/17/2020 9:07 AM EDT Pulse 84 01/17/2020 9:07 AM EDT Temperature 36.5 C (97.7 F) 01/17/2020 9:07 AM EDT Respiratory Rate 18 01/17/2020 9:07 AM EDT Oxygen Saturation 98% 01/01/2020 9:01 AM EDT Inhaled Oxygen Concentration - - Weight 99.8 kg (220 lb) 01/01/2020 9:01 AM EDT Height 154.9 cm (5' 1 ) 01/17/2020 9:07 AM EDT Body Mass Index 41.57 01/01/2020 9:01 AM EDT Plan of Treatment Health Maintenance Due Date Last Done Comments ANNUAL PHYSICAL 06/02/2016 LIPID PANEL 12/31/2020 01/01/2020, 06/0 06/2019, 10/30/2018, Additional history exists Annual Gynecologic Pelvic and Breast Exam 01/01/2021 01/01/2020, 01/01/2020 MAMMOGRAM 01/24/2022 01/25/2020, 01/17/2020 COLOGUARD 2022 COLON CANCER SCREENING 5 YEAR SIGMOIDOSCOPY 2022 COLONOSCOPY 2022 COLORECTAL CANCER SCREENING 2022 CT COLONOGRAPHY 2022 FECAL OCCULT BLOOD TEST 2022 FIT Testing (1 year) 2022 COVID-19 Vaccine ( - 2023- season) 2023 INFLUENZA VACCINE 01/09/2025 12/21/2019, , 12/11/2015 TDAP/TD VACCINES (3 - Td or Tdap) 06/02/2026 06/02/2016, 03/08/2014 Pneumococcal Vaccine 0-49 Aged Out 01/07/2016, No longer eligible based on patient's age to complete this topic HEPATITIS C SCREENING Completed 01/01/2020 Procedures Procedure Name Priority Date/Time Associated Diagnosis Comments MAMMO DIAGNOSTIC DIGITAL TOMOSYNTHESIS RIGHT W CAD Routine 01/25/2020 2:16 PM EDT Abnormal mammogram LIPID PANEL Routine 01/01/2020 10:19 AM EDT Mixed hyperlipidemia Medicare annual wellness visit, initial Encounter for well adult exam without abnormal findings HEPATITIS C ANTIBODY Routine 01/01/2020 10:19 AM EDT SCANNED - PAP SMEAR 01/01/2020 SCANNED - INFLUENZA 12/21/2019 from Last 3 Months or Most Recently Relevant to Health Maintenance Results * Mammo Diagnostic Digital Tomosynthesis Right With CAD (01/25/2020 2:16 PM EDT) Anatomical Region Laterality Modality Breast Right Mammography 01/25/2020 3:32 PM EDT Impressions 01/25/2020 5:09 PM EDT Benign additional mammographic and ultrasound imaging of the right breast. RECOMMENDATION: Resume annual screening mammography. BI-RADS CATEGORY 2, BENIGN. CAD was utilized. The standard false-negative rate of mammography is between 10% and 25%. Complex patterns or increased breast density will markedly elevate the false-negative rate of mammography. At our facility, a triangular marker is positioned over a palpable area of concern indicated by the patient. A [place] marker is placed over a visible skin lesion. A linear marker indicates a scar. A results letter, in lay terminology, will be given to the patient at the conclusion of the exam. This report was finalized on 01/25/2020 5:[address] Ashley Alston MD. Narrative 01/25/2020 5:09 PM EDT RIGHT DIAGNOSTIC MAMMOGRAM WITH TOMOSYNTHESIS AND RIGHT BREAST ULTRASOUND: HISTORY: 44-year-old patient recalled from baseline screening mammography dated 01/17/2020 for further evaluation of an oval mass in the right breast. TECHNIQUE: Right CC focal compression and right MLO focal compression views were obtained with tomosynthesis. Furthermore, focused sonographic imaging was performed of the right 9:00-10:00 region. COMPARISON: Baseline screening mammogram dated 01/17/2020. FINDINGS: Additional mammographic imaging of the right breast demonstrates a persistent 0.3 cm well-circumscribed oval, isodense mass in the anterior aspect of the 9:00-10:00 region. Focused sonographic imaging of the right upper outer quadrant demonstrates a 0.3 cm cyst in the 10:00 position located 3 cm from the nipple that corresponds to the oval mass noted on mammographic imaging. No suspicious sonographic findings are identified. us Genet Paz MD IM MAMMOGRAPHY ORDERABLES Final Result * Hepatitis C Antibody (01/01/2020 10:19 AM EDT) Hep C Virus Ab <0.1 0.0 - 0.9 s/co ratio [facility] Comment: Negative: < 0.8 Indeterminate: 0.8 - 0.9 Positive: > 0.9 The CDC recommends that a positive HCV antibody result be followed up with a HCV Nucleic Acid Amplification test (417160). 01/01/2020 10:1 9 AM EDT 01/01/2020 Narrative [facility] ([facility]) - 01/03/2020 2:10 PM EDT Performed at: 02 - [facility] [address] [place], [place] [id number] Mortgage Branch Manager: Timmy Wren PhD, Phone: [phone] Patient Fasting: N us Asmita BROWN LAB BLOOD ORDERABLES Final Res ult Performing Organization Address City/[facility]/ZIP Co de Phone Number [facility] ([facility]) [address] [place] [address], [facility] [address] [place] [address], * (ABNORMAL) Lipid Panel (01/01/2020 10:19 AM EDT) Pathologist [facility] Total Cholesterol 194 0 - 200 mg/dL [facility] Triglycerides 118 0 - 150 mg/dL [facility] HDL Cholesterol 56 40 - 60 mg/dL [facility] VLDL Cholesterol Jerry 23.6 mg/dL [facility] LDL Chol Calc (NIH) 114(H) 0 - 100 mg/dL [facility] Blood 01/01/2020 10:1 9 AM EDT 01/01/2020 Narrative [facility] ([facility]) - 01/03/2020 2:10 PM EDT Performed at: [address] [id number] Mortgage Branch Manager: Adriel Aguirre MD, Phone: [phone] Patient Fasting: N Asmita BROWN LAB BLOOD ORDERABLES Final Res ult Performing Organization Address City/[facility]/ZIP Co de Phone Number [facility] ([facility]) [address] [place] [address], [place] [phone] [facility] [address] [place] [address], * SCANNED - PAP SMEAR (01/01/2020) us Asmita BROWN CHART REVIEW TABS Final Res ult * SCANNED - INFLUENZA (12/21/2019) Asmita BROWN CHART REVIEW TABS Final Res ult from Last 3 Months or Most Recently Relevant to Health Maintenance Insurance [employer] MEDICARE ADVANTAGE Care Teams Executive Candidate Developer Relationship Specialty Start Date End Date Asmita Sky PA [address] [place] [address] PCP - General Physician Garde Manager 10/05/17
--- OUTSIDE RECORDS SUMMARY | 2024-11-29 13:12 | XMS_ITS | Clinical Summary ---
Author Organization [facility] Address [address] [place] [address] Phone Care Team Providers Care Emergency Crew Supervisor Name Role Phone Rafaela WATKINS, Estuardo Romero [facility] [phone] [ ] Conditions or Problems Problem Name Problem Code Onset Date Status Entry Date Provider Comment Standard Description Annotate Dysuria 12255270 (SNOMED CT) Active Estuardo Russo MD Dysuria Neutrophilic leukemoid reaction D72.823 (ICD-10-CM ) 01/06 Active 01/06 Maria Antonia Louis Leukemoid reaction Cellulitis, back 90937632 (SNOMED CT) 01/06 Active 01/06 Maria Antonia Louis Cellulitis of back, except buttock Abscess, back 415138239 (SNOMED CT) 01/06 Active 01/06 Maria Antonia Louis Abscess of back MRSA infection 189661335 (SNOMED CT) 01/06 Active 01/06 Maria Antonia Louis Methicillin resistant Staphylococcus aureus infection Other obesity due to excess calories 359371243 (SNOMED CT) 01/06 Active 01/06 Eliot Hernandez Simple obesity Nicotine dependence, cigarettes F17.210 (ICD-10-CM ) 01/06 Active 01/06 Eliot Hernandez Nicotine dependence, cigarettes, uncomplicated Medications Medication Instructions Start Date Stop Date Generic Name ND Provider BACTROBAN 2 % EXTERNAL OINTMENT intranasally bid x 10 days MUPIROCIN [id number] Estuardo Russo MD BACTROBAN 2 % EXTERNAL OINTMENT Applied to the wounds 12 times daily MUPIROCIN 98610036835 Estuardo Russo MD MAGNESIUM 400 MG ORAL CAPS by mouth twice daily MAGNESIUM OXIDE 01147033666 Estuardo Russo MD COQ10 100 MG CAPS 0.5 tab by mouth daily COENZYME Q10 [id number] Eliot P ADULT ASPIRIN EC LOW STRENGTH 81 MG ORAL TABLET DELAYED RELEASE by mouth daily ASPIRIN 98892003115 Eliot P LEVO-T 112 MCG TABS by mouth daily LEVOTHYROXINE SODIUM 57400180193 Eliot P MAGNESIUM 400 MG ORAL CAPS by mouth twice daily MAGNESIUM OXIDE 49805936591 Eliot P BACTRIM DS 800-160 MG TABS by mouth twice daily SULFAMETHOXAZOLE -TRIMETHOPRIM 63553319762 Eliot P ZOFRAN 8 MG ORAL TABLET by mouth twice daily ONDANSETRON HCL 37906269818 Eliot P NORCO 10-325 MG ORAL TABLET by mouth every four hours as needed HYDROCODONE-ACET AMINOPHEN 68528384926 Eliot P Medications Administered No information available. Allergies, Adverse Reactions, Alerts No information available. Results Date Name Value Unit Range Flag Description Office Visit: 10 DIET DUCT INSTALLER yes Dietary management education, guidance, and counseling (procedure) MEDS REVIEW Done Documenta tion of current medications (procedure) SMOK ADVICE yes Smoking c essation education (procedure) CIGARET SMKG yes Tobacco smoking status SMOK STATUS Current every da y smoker Tobacco smoking status Plan of Care Type Date Detail Patient education Medications Patient education HOW%20TO%20STO P%20SMOKING Patient education WEIGHT%20MANAG EMENT Patient education HOW%20TO%20STO P%20SMOKING Patient education WEIGHT%20MANAG EMENT Procedures No information available. Vital Signs Date Name Value Unit Description BMI (Body Mass Index) 32.19 kg/m2 Bod y Mass Index (Ratio) Body Temperature 98.1 [degF] temperat ure E&M BP Diastolic 84 mm[Hg] blood pressu re, diastolic BP Systolic 122 mm[Hg] blood pressur e, systolic Heart Rate 72 /min pulse rate Respiratory Rate 14 /min respirat ory rate E&M Weight Measured 176 [lb_av] weight E& M Weight Measured 176 [lb_av] weight E& M Height 62 [in_us] height E&M Immunizations Vaccine Administration Date Standard Description CVX Co de Dose Pneumovax 23 Injection Injectable 25 MCG/0.5ML Pneumovax 23 Injection Injectable 25 MCG/0.5ML 33 Unknown Afluria Intramuscular Suspension Afluria Intramuscular Suspension 141 Unknown Advance Directives Directive Description Start Date NO ADVANCED DIRECTIVES
--- OUTSIDE RECORDS SUMMARY | 2024-11-29 13:12 | XMS_ITS | Encounter Summary ---
Author Organization [facility] yste Address [address] [place] [address] Care Team Providers Care Denial Management Representative Name Role Phone Asmita Sky Primary Care Provider [phone] Reason for Visit * Reason Comments Med Refill Encounter Details Date Type Department Care Team (Late st Contact Info) Description 11/15/2019 Refill [facility] [address] [place] [address] Asmita Sky PA [address] [facility] [facility] [place] [address] Yeast infection Social History Tobacco Use Types Packs/Day Years Used Date Smoking Tobacco: Former Cigarettes 1 18 0 12/05/1998 - 12/05/2016 Smokeless Tobacco: Never Alcohol Use Standard Drinks/Week Comments Yes 0 (1 standard drink = 0.6 oz pur e alcohol) 2 times per month Comments No Sex and Gender Information Value Date Recorded Sex Assigned at Not on file Legal Sex Female 10:39 AM EDT Gender Identity Not on file Sexual Orientation Not on file documented as of this encounter Plan of Treatment Not on file documented as of this encounter Visit Diagnoses Diagnosis Yeast infection documented in this encounter Care Teams Denial Management Representative Relationship Specialty Start Date End Date Asmita Sky PA [address] [place] [address] PCP - General Physician Newswriter 10/05/17 documented as of this encounter
--- OUTSIDE RECORDS SUMMARY | 2024-11-29 13:13 | XMS_ITS | Patient Health Record ---
[facility] Address [address] [facility] [address] [place] [id number] Care Team Providers Care Presentation Designer Name Role Phone Gregor Geller Primary Care Provider [phone] Constanza Flynn Unavailable [phone] Allergies No Known Allergies Results Component Value [...] Interpretation:Normal Performing Lab: Notes/Report: Test performed by [email or web address] [facility] [place] , [address], [place] [address] Mann Delacruz MD, Director Of Solutions Architecture CLIA: [id number] Sodium 141 135-145 mmol/L Potassium 4.7 3.5-5.3 [...] Interpretation:Normal Performing Lab: Notes/Report: Test performed by [facility] [address] [place] [address] , [place] [address] Mann Delacruz MD, Director Of Solutions Architecture CLIA: [id number] Thyroxine Free (free T4) 1.70 0.86-1.76 ng/dL P-Lipid Panel Reviewed date:06/15/2024 09:43:23 AM Interpretation:Normal Performing Lab: Notes/Report: Test performed by [facility] [address] [place] [address] , [address], [place] [address] Mann Delacruz MD, Director Of Solutions Architecture CLIA: [id number] Cholesterol 128 <200 mg/dL Triglycerides 111 <150 [...] Interpretation:0.27 Performing Lab: Notes/Report: Test performed by [facility] [address] [place] [address] , [place] [address] Mann Delacruz MD, Director Of Solutions Architecture CLIA: [id number] TSH 0.27 0.43-5.25 mU/L P-Microalbumin/Creatinine, R andom Urine Sample Reviewed date:06/15/2024 09:43:23 AM Interpretation:Normal Performing Lab: Notes/Report: Test performed by [facility] [address] [place] [address] , [address], [place] [address] Mann Delacruz MD, Director Of Solutions Architecture CLIA: [id number] Albumin/Creatinine Ratio, Urine 6 0-30 ug/m g Microalbumin, Urine, Random 1.1 Creatinine, Urine 170.0 Cologuard Reviewed date:05/25/2024 04:22:03 PM Interpretation:Negative Performing Lab: Notes/Report: Negative Cologuard Negative CBC Fingerstick (in house) Reviewed date:04/25/2024 03:15:42 PM Interpretation: Performing Lab: Notes/Report: wbc 8.7 3.5 - 10 lym 26.3% 15 - 50 mid 7.5% 2 - 15 gran 66.2% 35 - 80 rbc 4.56 3.5 - 5.5 hgb 12.9 11.5 - 16.5 hct 39.0 35 - 55 mcv 85.5 75 - 100 mch 28.3 25 - 35 mchc 33.1 31 - 38 plat 271 100 - 400 CBC Fingerstick (in house) Reviewed date:11/07/2024 12:42:40 [...] - 38 plat 243 100 - 400 Reason For Referral No Information Medications Medication SIG (Take, Route, Frequency, Duration) Notes Start Date End Date Status DULoxetine HCl 60 MG 1 cap(s) orally once a day Active Euthyrox 100 MCG 1 tablet in the morn ing on an empty stomach Orally Once a day; Duration: 90 days Active Linzess 290 MCG 1 cap(s) orally once a day Active Atorvastatin Calcium 20 MG 1 tab(s) orally once a day Active Ozempic (2 MG/DOSE) 8 MG/3ML 2 mg Subcutaneous once weekly Active Zithromax Z-James 250 MG as directed Orall y daily; Duration: 5 days 11/07/2024 Active Clopidogrel Bisulfate 75 MG 1 tab(s) orally once a day A ctive Losartan Potassium 50 MG 1 tab(s) orally once a day Active Nadolol 20 MG 1 tab orally once a day Active metFORMIN HCl ER 500 MG Take 1 tablet by mouth once daily; Duration: 90 Active Immunizations Vaccine Route Administration Date Status Comme nts COVID 19 Moderna Unknown 08/12/2020 Administered COVID 19 Moderna Unknown 11/04/2020 Administered Fluzone PF Quad (6-35 months) Unknown 01/03/2016 Administered Fluzone PF Quad (6-35 months) Unknown 05/05/2017 Administered Fluzone PF Quad (6-35 months) Unknown 12/21/2019 Administered Fluzone PF Quad (6-35 months) Unknown 02/09/2022 Administered Fluzone Quad (6months&older) IM Intramuscular 12/12/2020 Administered Hepatitis A (adult) Unknown 11/07/2017 Administered PNEUMOVAX 23 VACCINE Unknown 01/03/2016 Administered Tetanus Tdap-Adacel (over 7yrs) Unknown 03/08/2014 Administered Tetanus Tdap-Adacel (over 7yrs) Unknown 06/02/2016 Administered Problems Problem Type SNOMED Code ICD Code Onset Dates Problem Status W/U Status Risk Notes Problem Peripheral circulatory disorder associated with diabetes mellitus (040576547) Type 2 diabetes mellitus with other circulatory complications (E11.59) Active confirmed Problem Essential hypertension (17947680) Essential hypertension (I10) Active confirmed Problem Morbid obesity (415284102) Morbid obesity (E66.01) Active confirmed Problem Hypertriglyceridemia (634475099) Hypertriglyceridemia (E78.1) Active confirmed Problem Anxiety (30106157) Anxiety (F41.9) Active confi rmed Problem Obese class I (517050229029529) BMI 33.0-33.9,adult (Z68.33) Active confirmed Problem Fibromyalgia (337827357) Fibromyalgia (M79.7) Active confirmed Problem Excessive thirst (01467157) Polydipsia (R63.1) Active confirmed Problem Hyperlipidaemia (77556283) Hyperlipidemia, unspecified hyperlipidemia type (E78.5) Active confirmed Problem Hypothyroidism (29512347) Hypothyroidism, unspecified type (E03.9) Active confirmed Problem Impaired fasting glycaemia (655082157) IFG (impaired fasting glucose) (R73.01) Active confirmed Problem Irritable bowel syndrome characterized by constipation (305543190) Irritable bowel syndrome with constipation (K58.1) Active confirmed Problem Obesity (059677680) Non morbid o besity (E66.9) Active confirmed Problem Atherosclerotic hear t disease of eek coronary artery without angina pectoris (735768680811233) Coronary artery disease involving eek heart, unspecified vessel or lesion type, unspecified whether angina present (I25.10) Active confirmed Vital Signs Heart Rate 79 /min 11/07/2024 Blood pressure diastolic 72 mm Hg 11/07/2024 Height 62 in 11/07/2024 Blood pressure systolic 120 mm Hg 11/07/2024 Weight 180.6 lbs 11/07/2024 BMI 33.03 kg/m2 11/07/2024 Encounters Encounter Location Date Provider Diagnosis [facility] [address] [place], [place] [id number] 12/14/2023 Constanza Crowdy Yeast infection B37. 9 ; Rash R21 and Onychomycosis B35.1 [facility] [address] [facility] [address] [place], [place] [id number] 04/25/2024 Gregor Eudora Acute URI J06.9 [facility] [address] [facility] [address] [place], [place] [id number] 06/13/2024 Gregor Eudora Essential hypertensi on I10 ; Hyperlipidemia, unspecified hyperlipidemia type E78.5 ; Hypertriglyceridemia E78.1 ; Hypothyroidism, unspecified type E03.9 ; Coronary artery disease involving eek heart, unspecified vessel or lesion type, unspecified whether angina present I25.10 ; Fibromyalgia M79.7 ; IFG (impaired fasting glucose) R73.01 and Non morbid obesity E66.9 [facility] [address] [facility] [address] [place], [place] [id number] 11/07/2024 Gregor Eudora Acute non-recurrent maxillary sinusitis J01.00 ; Type 2 diabetes mellitus with other circulatory complications E11.59 ; Morbid obesity E66.01 and BMI 33.0-33.9,adult Z68.33 [facility] [address] [facility] [address] [place], [place] [id number] 04/02/2024 Gregor Eudora [facility] [address] [facility] [address] [place], [place] [id number] 04/13/2024 Gregor Eudora [facility] [address] [facility] [address] [place], [place] [id number] 06/15/2024 Gregor Eudora [facility] [address] [facility] [address] [place], [place] [id number] 11/13/2024 Gregor Eudora Breast cancer screen ing by mammogram Z12.31 Assessments Encounter Date Diagnosis (ICD Code) Assessment Notes Treatment Notes Treatment Clinical Notes Section Notes 12/14/2023 Rash (ICD-10 - R21) Can get ketoconazole shampoo OTC and begin using for the scalp. 12/14/2023 Yeast infection (ICD -10 - B37.9) 04/25/2024 Acute URI (ICD-10 - J06.9) 06/13/2024 Essential hypertensi on (ICD-10 - I10) 06/13/2024 Hyperlipidemia, unspecified hyperlipidemia type (ICD-10 - E78.5) 11/07/2024 Type 2 diabetes mellitus with other circulatory complications (ICD-10 - E11.59) 11/07/2024 Acute non-recurrent maxillary sinusitis (ICD-10 - J01.00) 11/13/2024 Breast cancer screen ing by mammogram (ICD-10 - Z12.31) 11/07/2024 Morbid obesity (ICD- 10 - E66.01) 06/13/2024 Hypertriglyceridemia (ICD-10 - E78.1) 12/14/2023 Onychomycosis (ICD-1 0 - B35.1) 06/13/2024 Hypothyroidism, unspecified type (ICD-10 - E03.9) 11/07/2024 BMI 33.0-33.9,adult (ICD-10 - Z68.33) 06/13/2024 Coronary artery dise ase involving eek heart, unspecified vessel or lesion type, unspecified whether angina present (ICD-10 - I25.10) 06/13/2024 Fibromyalgia (ICD-10 - M79.7) 06/13/2024 IFG (impaired fastin g glucose) (ICD-10 - R73.01) 06/13/2024 Non morbid obesity (ICD-10 - E66.9) Plan Of Treatment Pending Test Test Name Order Date Mammogram 11/13/2024 Next Appt Details Provider Name:Gregor Griffin ry, 12/14/2024 10:00:00 AM, [address], [address], [place], [place], [id number], Insurance Providers Payer Name Payer Address Payer Phone Subscriber Number Group Number Insured Name Patient Relationship to Insured Coverage Start Date Coverage End Date [employer] (MEDICAR E) [address] [address] [place] [phone] [id number] HAYDEEMARISOL GONZALO Self - patient is the insured Medical (General) History Medical History History ICD Code CHF, non ischemic, Dx: 2013 [place], [place] Hypertension Hyperlipidemia Hypertriglyceridemia Hypothyroidism Dago's Thyroiditis Fibromyalgia Irritable Bowel Syndrom-C MRSA skin abscess, multiple Non-Epileptic (psychogenic) Seizures Renal Insufficiency Kidney Stones Declared disabled by social security adm inistration in 2016 Allergic Rhinitis Impaired Fasting Glucose Surgical History Surgery Date(Month/Year) C section x2 Tubal Ligation Cholecystectomy 2004 Benign Tumor Removal, Larynx Nasopalatine Cystic Tumor Removal MRSA Abscess Drainage Stent - Dr. Feng 05/2021 Hospitalization History Reason Date(Month/Year) MRSA 5 day stay CHF - 1 week stay
--- OUTSIDE RECORDS SUMMARY | 2024-11-29 13:13 | XMS_ITS | Clinical Summary ---
Author Organization [facility] Address [address] [place] [address] Care Team Providers Care Director E Learning Name Role Phone Gregor Geller MD Primary Care Provider + [phone] Medications coenzyme Q-10 100 MG capsule Take 1 capsule (100 mg) by mouth 1 (one) time each day. Active atorvastatin (Lipitor) 40 MG tablet Take 1 tablet (40 mg) by mouth 1 (one) time each day. 08/19/2021 Active aspirin 81 MG EC tablet Take 1 tablet (81 mg) by mouth 1 (one) time each day. Active clopidogrel (Plavix) 75 MG tablet Take 1 tablet (75 mg) by mouth 1 (one) time each day. 08/19/2021 Active DULoxetine (Cymbalta) [address] capsule Take 1 capsule (60 mg) by mouth 1 (one) time each day. 08/19/2021 Active Euthyrox 125 MCG tablet Take 1 tablet (125 mcg) by mouth 1 (one) time each day. 09/17/2021 Active Linzess 290 MCG capsule Take 1 capsule (290 mcg) by mouth 1 (one) time each day. 09/17/2021 Active losartan (Cozaar) 100 MG tablet Take 1 tablet (100 mg) by mouth 1 (one) time each day. 08/03/2021 Active metFORMIN XR (Glucophage-XR) 500 MG 24 hr tablet Take 1 tablet (500 mg) by mouth 1 (one) time each day. 09/05/2021 Active nadolol (Corgard) 20 MG tablet Take 1 tablet (20 mg) by mouth 1 (one) time each day. 09/05/2021 Active omeprazole (PriLOSEC) [address] capsule TAKE 1 CAPSULE Daily On an empty stomach and eat 30 minutes later. 06/27/2015 Active semaglutide 1 MG/DOSE (Ozempic, 1 MG/DOSE,) 2 MG/1.5ML solution pen-injector inj. pen Inject 1 mg under the skin 1 (one) time per week. Active Active Problems No known active problems Family History Medical History Relation Name Comments Anxiety disorder Other 1 Arthritis Other 2 Asthma Other 3 Cardiac disorder Other 4 Stroke Other 5 Depression Other 6 Diabetes Other 7 Endometriosis Other 8 Cirrhosis Other 9 Hypercholesterolemia Other 10 Hypertension Other 11 Lung cancer Other 12 Lymphoma Other 13 Stomach cancer Other 14 Thyroid cancer Other 15 Migraines Other 16 Pancreatic cancer Other 17 Seizures Other 18 Thyroid disease Other 19 Tuberculosis Other 20 Conversions - Other Other 21 uterine leiomyoma Relation Name Status Comments Other 1 Other 2 Other 3 Other 4 Other 5 Other 6 Other 7 Other 8 Other 9 Other 10 Other 11 Other 12 Other 13 Other 14 Other 15 Other 16 Other 17 Other 18 Other 19 Other 20 Other 21 Social History Tobacco Use Types Packs/Day Years Used Date Smoking Tobacco: Former Cigarettes Smokeless Tobacco: Never Alcohol Use Standard Drinks/Week Comments Yes 0 (1 standard drink = 0.6 oz pure alcohol) Alcoholic Drinks/day: Occasional alcohol use PHQ-2 Answer Date Recorded Patient Health Questionnaire-2 Score 0 04/08/2023 CAGE ASSESSMENT Answer Date Recorded Cage unable to access Not on file 04/01/2023 Maximum number of drinks you had on a given occasion in the last month? 0 drinks 04/01/2023 How many alcoholic Beverages do you typically drink in a week? 0 - 7 per week 04/01/2023 Have you ever felt you should CUT down on your d rinking? 0 04/01/2023 Have you been ANNOYED by peo ple criticizing your drinking? 0 04/01/2023 Have you felt GUILTY about your drinking? 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 0 04/01/2023 CAGE Questionnaire Score 0 023 Comments No Sex and Gender Information Value Date Recorded Sex Assigned at Not on file Legal Sex Female 7:48 PM EDT Gender Identity Not on file Sexual Orientation Not on file Last Filed Vital Signs Vital Sign Reading Time Taken Comments Blood Pressure 128/88 04/08/2023 10:17 AM EST Pulse 64 04/08/2023 10:17 AM EST Temperature 36.6 C (97.9 F) 04/08/2023 10:17 AM EST Respiratory Rate 18 04/02/2023 12:37 AM EST Oxygen Saturation 99% 04/08/2023 10:17 AM EST Inhaled Oxygen Concentration - - Weight 86.2 kg (190 lb) 04/08/2023 10:17 AM EST Height 157.5 cm (5' 2 ) 04/08/2023 10:17 AM EST Body Mass Index 34.75 04/08/2023 10:17 AM EST Plan of Treatment Health Maintenance Due Date Last Done Comments [facility]-/Child/Adol SDOH Screenings 1975 [facility]- SDOH Screenings 1995 [facility]-Adult SDOH Screenings 1995 [facility]-Hepatitis B Vaccines (1 of 3 - 19+ 3-dose series) 1996 [facility]-Pap Smear 03/26/2001 03/26/1998, 09/18/1997 [facility]-Cervical Cancer Screening 2007 [facility]-HPV/Cotest 2007 03/26/1998, 09/18/1997 [id number] Vaccine (3 - Moderna risk series) 12/02/2020 11/04/2020, 08/12/2020 [facility]-Medicare Annual Wellness (AWV) 12/31/2020 01/01/2020 CT Colonography 2022 Colonoscopy 2022 FIT-DNA 2022 FIT 2022 FOBT 2022 Sigmoidoscopy 2022 [facility]-Colorectal Cancer Screening 2022 [facility]-Depression Screening 04/08/2024 04/08/2023 [facility]-Influenza Vaccine (#1) 12/10/202402/09, 12/12/2020, 12/21/2019, Additional history exists [facility]-DTaP,Tdap,and Td Vaccines (3 - Td or Tdap) 06/02/2026 06/02/2016, 03/08/2014 [facility]-Zoster Vaccines (1 of 2) 2027 [facility]-Pneumococcal Vaccine: Pediatrics (0 to 5 Years) and At-Risk Patients (6 to 49 Years) Aged Out 01/07/2016, 01/03/2016 No longer eligibl e based on patient's age to complete this topic [facility]-Hepatitis A Vaccines Aged Out 11/07/2017 No longer eligible based on patient's age to complete this topic [facility]-Diabetes: Hemoglobin A1C Discontinued 09/29/2021, 06/20/2019, 10/03/2017 [facility]-HIV Screening Completed 04/01/2023 [facility]-Hepatitis C Screening Completed 04/01/2023, [facility]-Obesity Intervention Completed 04/08/2023 HPV Vaccines Aged Out No longer eligi ble based on patient's age to complete this topic [facility]-HIB Vaccines Aged Out No longer e ligible based on patient's age to complete this topic [facility]-IPV Vaccines Aged Out No longer e ligible based on patient's age to complete this topic [facility]-Rotavirus Vaccines Aged Out No lo nger eligible based on patient's age to complete this topic Procedures Procedure Name Priority Date/Time Associated Diagnosis Comments HEPATITIS C ANTIBODY - ED W/REFLEX TO HCV QUANT PCR STAT 04/01/2023 6:22 PM EST ED HIV 1/2 ANTIBODY/ANTIGEN SCREEN WITH REFLEX TO HIV I/II DIFFERENTIATION STAT 04/01/2023 6:22 PM EST POCT GLYCOSYLATED HEMOGLOBIN (HGB A1C) Routine 09/29/2021 10:06 AM EDT Hyperglycemia CYTO DATA CONVERSION Routine 03/26/1998 12:00 AM EST from Last 3 Months or Most Recently Relevant to Health Maintenance Results * ED HIV 1/2 Antibody/Antigen Screen w/Reflex to HIV 1/2 Differentiation (04/01/2023 6:22 PM EST) HIV 1 & 2 Antibody/Antigen Screen Non Reactive Non Reactive 04/01/2023 7:10 PM EST [facility] Comment:Screening for HIV 1 & 2 antibodies, and P24 antigen is NONREACTIVE. No confirmatory testing is required. Blood Venous blood specimen / Unknown Venipuncture / Unknown 04/01/2023 6:22 PM EST 04/01/2023 6:30 PM EST Mariela Diaz DO LAB BLOOD ORDERABLES Final Res ult Performing Organization Address [facility] Co de Phone Number [facility] [address] [place] [address] * Hepatitis C Antibody - ED (04/01/2023 6:22 PM EST) Hepatitis C Antibody Negative Negative 04/01/2023 7:10 PM EST HEALTHCARE [facility] Blood Venous blood specimen / Unknown Venipuncture / Unknown 04/01/2023 6:22 PM EST 04/01/2023 6:30 PM EST Mariela Diaz DO LAB BLOOD ORDERABLES Final Res ult Performing Organization Address [facility] de Phone Number [facility] [address] [place] [address] * POCT glycosylated hemoglobin (Hb A1C) docked device (09/29/2021 10:06 AM EDT) POCT Hemoglobin A1C 5.7 4.4-6.6 % % [facility] Kit Lot Number na [facility] Kit Expiration Date na [facility] Blood Venous blood specimen / Unknown 09/29/2021 10:06 AM EDT Laith Chen MD POINT OF CARE TEST ENTER/EDIT ORDERABLES Final Result Performing Organization Address [facility] Co de Phone Number [facility] [address] [place] [address] * Cytology (03/26/1998 12:00 AM EST) 03/26/1998 03/27/1998 Narrative SUNQUEST - 04/14/1998 12:00 AM EST [facility] MR #: [id number] [facility] [place], [place] [address] 1975 (Age: 22) FW Collect Date: 03/26/1998 00:00 Receipt Date: 03/27/1998 00:00 Page 1 DEPARTMENT OF PATHOLOGY AND LABORATORY MEDICINE CYTOPATHOLOGY REPORT Email: [email or web address] * Converted Case * This report may not match the original report format ATTENDING MD/Practitioner: Terri Perez MD Service: OB Location: Reported: 04/14/1998 00:00 Collected: 03/26/1998 00:00 INTERPRETATION CERVICAL/VAGINAL SMEAR WITHIN NORMAL LIMITS. SATISFACTORY FOR INTERPRETATION. Cervical/vaginal cytology is a screening test with a recognized false negative rate. New technologies may decrease but will not eliminate false negative results. Regular (generally annual) cytology screening is recommended to minimize false negative results. Electronically Signed Out By Vannessa Quintanilla FAYE Posadas(ASC) No Signature Required Cervical cytology is a screening test primarily for squamous cancers and precursors and has associated false negative and positive results. New technologies such as liquid based sampling may decrease but will not eliminate all false negative results. Regular screening and follow-up of unexplained clinical signs and symptoms are recommended to minimize false negative results. Please see the ASCCP website (www.asccp.org) for followup recommendations. If HPV testing was requested, correlation with the results is suggested (please call Microbiology at [phone] for results). CLINICAL INFORMATION: Menstrual History: {Not Provided} Date of Last Menstrual Period: {Not Provided} SPECIMEN DESCRIPTION: A: CERVICAL/VAGINAL SMEAR, PAP ICD: F: {Not Entered} SNOMED CODES: 1; Y0V322 [id number] In cases where a pathologist has signed out the report, the service has been rendered in part by a resident. The signing pathologist has performed and is responsible for the reported pathologic evaluation. us Historical Provider LAB PATHOLOGY ORDERABLES Fin al Result SUNQUEST from Last 3 Months or Most Recently Relevant to Health Maintenance Insurance [facility] MEDICARE [facility] [employer] MEDICARE Care Teams Director E Learning Relationship Specialty Start Date End Date Gregor Geller MD [address] [facility], [place] [address] PCP - General 07/29/21
== END 2024-11-29 23:59 | disposition home or self-care (01) ==
LOC: RAD 13:07
PROVIDERS: PCP Family Medicine; Visit Provider Family Medicine
DX: Z12.31 Encounter for screening mammogram for malignant neoplasm of breast (principal); R92.323 Mammographic fibroglandular density, bilateral breasts
CPT/HCPCS: 77063; 77067